=== PATIENT | female | born 1985 | race Caucasian/White ===

== ENCOUNTER 2022-04-18 17:44 | Inpatient (IN) | payer OTHER, SELFPAY ==
[2022-04-18 18:17] VITALS: BP 112/67; PULSE 95; RESP 18; TEMP 36.8; O2SAT 96; BMI 25.0
--- NOTE | 2022-04-18 19:57 | CRLHL7_ITS ---
For Patients: As a result of the Cures Act, medical imaging exams and procedure reports are released immediately into your electronic medical record. You may view this report before your referring provider. If you have questions, please contact your health care provider. Indication: Kicked by horse, concern for abscess. Technique: Targeted ultrasound of the anterior left thigh, the region of interest. Comparison: None. Findings: No drainable fluid collections or foreign bodies noted in the area of concern. Impression: No drainable fluid collections or foreign bodies noted in the area of concern, in the anterior left thigh. Dictated by Marquez Roque MD @ 04/18/2022 9:43:56 PM (Electronically Signed)
[2022-04-18 20:15] LABS: Basophils Absolute Auto 0.02 K/uL (0.00-0.30); Basophils Percent Auto 0.2 % (0.0-3.0); Eosinophils Absolute Auto 0.12 K/uL (0.00-0.50); Eosinophils Percent Auto 1.1 % (0.0-7.0); Hematocrit 32.7 % (33.0-51.0); Hemoglobin* 10.9 gm/dL (12.0-16.0); Immature Granulocytes Abs Auto 0.03 K/uL (0.00-0.30); Lymphocytes Percent Auto 16.3 % (20-44); Mean Corpuscular HGB Conc 33 gm/dL (32-36); Mean Corpuscular Hemoglobin 31 pg (26-34); Mean Corpuscular Volume 92 fL (80-100); Monocytes Percent Auto 6.2 % (0.0-11.0); Neutrophils Percent Auto 75.9 % (42.0-72.0); Platelet Count* 212 K/uL (140-440); RDW Coefficient of Variation % 12.1 % (11.5-15.5); Red Blood Count 3.57 m/uL (4.00-5.20); White Blood Count* 10.63 K/uL (4.50-11.00)
[2022-04-18 20:18] LABS: Slide Review Reflex No
[2022-04-18] MEDS: ONDANSETRON 2 MG/ML inj 4 MG IVP (20:33)
[2022-04-18] MEDS: HYDROmorphone 0.5 mg/0.5 ml inj IVP ×3 (20:33→23:45)
[2022-04-18 20:55] LABS: Erythrocyte SedimentationRate* 44 mm/hr (2-20)
--- NOTE | 2022-04-18 21:18 | ED_ITS ---
HPI - General Adult General Chief complaint: Skin/Abscess/Foreign Body Stated complaint: Possible Leg Infection Time Seen by Provider: 04/18/22 18:04 History of Present Illness HPI narrative: Pt is a 36 year old reasonably healthy woman who 4 days ago was struck in the left anterior thigh by her horse's foot while the amber was shoeing it. There was a shoeing nail protruding from the foot which cut into Lorna's thigh. The pt was taken to the hospital in [place] where the wound was closed. She states the wound was not washed. She was placed on Duracef and discharged home. The pt returned the next day with increasing redness and was given Bactrim DS to add to the Duracef. The pt states that she has had subjective fever and chills at home and the redness has expanded. She now has severe pain up into her groin on the left. The sutures feel like they are under pressure. Pt states that she is up to date on her Tdap and is her for help as she can't take the pain anymore. Related Data Home Medications Medication Instructions Recorded Confirmed cefadroxil 500 mg capsule mg 04/18/22 sulfamethoxazole 800 1 tab PO BID 04/18/22 04/18/22 mg-trimethoprim 160 mg tablet (Bactrim DS) Previous Rx's Medication Instructions Recorded duloxetine 60 mg capsule,delayed 60 mg PO QDAY #90 caps 03/16/22 release (Cymbalta) trazodone 100 mg tablet 200 mg PO QDAY #60 tabs 03/18/22 fluoxetine 20 mg capsule 60 mg PO QDAY #270 caps 04/11/22 topiramate 25 mg tablet See Rx Instructions .Route 04/13/22 .COMPLEX #270 tabs Allergies Allergy/AdvReac Type Severity Reaction Status Date / Time amoxicillin [From Augmentin] AdvReac Nausea Verified 04/18/22 18:17 clavulanic acid AdvReac Nausea Verified 04/18/22 18:17 [From Augmentin] Review of Systems Status of ROS: Reports: 10 or more systems reviewed and unremarkable except as noted in History and below [facility] Medical History Insomnia Social History Little interest or pleasure in doing things: not at all Feeling down, depressed, or hopeless: not at all Exam Narrative: Exam Narrative: EXAM GENERAL: Patient appears acutely uncomfortable and tearful EYES: No scleral icterus. THYROID: no thyroid nodules or thyromegaly. LYMPH: No supraclavicular or cervical lymphadenopathy. SKIN: Visible skin seen during exam normal or with benign process only. EXT: 2 by 2.5 cm closed laceration on the left anterior thigh with a radius of 10 cm of erythema surrounding. Significant groin adenopathy noted in the left groin HEART: Regular rate and rhythm with no murmurs, rubs, or gallops. LUNGS: Clear to auscultation bilaterally with no crackles or wheezes. ABD: Soft, non tender, non distended. PSYCH: Good eye contact, speech is not pressured. Const: Vital Signs, click to edit/add: Vital Signs - 24 hr 04/18/22 18:17 Temperature 98.2 F Pulse Rate [Right Pulse Oximeter] 95 Respiratory Rate 18 Blood Pressure [Ri ght Upper Arm] 112/67 Pulse Oximetry 96 Oxygen Delivery Me thod Room Air Course Course Hospital Course: Pt seen and examined. CBC, CMP, ESR, CRP, Blood and Wound cultures collected. Case discussed with general surgery who advised opening the wound. Large amount of puss expressed when wound was opened. Wound irrigated with sterile water, cultured and dressed. Labs reviewed. Pt started on Zosyn and Vancomycin and will be admitted for further evalutation. Reevaluation(s) Reevaluation #1: Pt feeling somewhat better after sutures removed. Explained need for admission. Started on Zosyn plus Vancomycine. Case admitted to [facility] after discussing with end of shift inhouse hospitalist. Time: 21:27 Reevaluation #2: Ultrasound obtained showing no further abscess. No DVT. Time: 21:29 Vital Signs Vital signs: Initial Vital Signs Temperature 98.2 F 04/18/22 18:17 Temperature Source Temporal Artery Scan 04/18/22 18:17 Pulse Rate 95 04/18/22 18:17 Respiratory Rate 18 04/18/22 18:17 Blood Pressure 112/67 04/18/22 18:17 Blood Pressure Mean 82 04/18/22 18:17 Blood Pressure Position Sitting 04/18/22 18:17 Pulse Oximetry 96 04/18/22 18:17 Oxygen Delivery Method 04/18/22 18:17 Vital Signs Temperature 98.2 F 04/18/22 18:17 Pulse Rate 95 04/18/22 18:17 Respiratory Rate 18 04/18/22 18:17 Blood Pressure 112/67 04/18/22 18:17 Pulse Oximetry 96 04/18/22 18:17 Oxygen Delivery Method 04/18/22 18:17 Temperature 98.2 F 04/18/22 18:17 Pulse Rate 95 04/18/22 18:17 Respiratory Rate 18 04/18/22 18:17 Blood Pressure 112/67 04/18/22 18:17 Pulse Oximetry 96 04/18/22 18:17 Oxygen Delivery Method 04/18/22 18:17 Medical Decision Making MDM Narrative Medical decision making narrative: Pt seen and examined. CBC, CMP, ESR, CRP, Blood and Wound cultures collected. Case discussed with general surgery who advised opening the wound. Large amount of puss expressed when wound was opened. Wound irrigated with sterile water, cultured and dressed. Labs reviewed. Pt started on Zosyn and Vancomycin and will be admitted for further evalutation. Differential Diagnosis Differential Diagnosis: Abcess, Cellulitis, Sepsis, Wound infection, Necrosis Lab Data Labs: Lab Results 04/18/22 04/18/22 04/18/22 Range/Units 19:57 19:57 19:57 WBC 10.63 (4.50-11.00) K/uL RBC 3.57 L (4.00-5.20) m/uL Hgb 10.9 L (12.0-16.0) gm/dL Hct 32.7 L (33.0-51.0) % MCV 92 (80-100) fL MCH 31 (26-34) pg MCHC 33 (32-36) gm/dL RDW Coeff of Dede 12.1 (11.5-15.5) % Plt Count 212 (140-440) K/uL Neut % (Auto) 75.9 H (42.0-72.0) % Lymph % (Auto) 16.3 L (20-44) % [place] % (Auto) 6.2 (0.0-11.0) % Eos % (Auto) 1.1 (0.0-7.0) % Baso % (Auto) 0.2 (0.0-3.0) % Neut # (Auto) 8.10 H (1.7-7.0) K/uL Lymph # (Auto) 1.70 (0.90-2.90) K/uL [place] # (Auto) 0.70 (0.00-0.90) K/UL Eos # (Auto) 0.12 (0.00-0.50) K/uL Baso # (Auto) 0.02 (0.00-0.30) K/uL Abs Immat Gran (auto) 0.03 (0.00-0.30) K/uL ESR 44 H (2-20) mm/hr C-Reactive Protein 5.0 H (0.5-1.0) mg/dL Discharge Plan Discharge Clinical Impression: Cellulitis Patient Disposition: Admitted As Inpatient Condition: Stable Activity Level: Activity as Tolerated Discharge Diet: Regular
[2022-04-18] MEDS: PIPERACILLIN/TAZOBACTAM 3.375 GM in 0.9 % SODIUM CHLORIDE Mini-bag 100 ML IVPB (22:06)
--- NOTE | 2022-04-18 22:17 | ED.NURSE ---
Suture removed from left thigh wound by provider and culture obtained. Area irrigated with normal saline and wet to dry gauze placed on leg.
[2022-04-18 22:26] LABS: SARS PCR* Negative SARS-CoV-2 (Negative)
[2022-04-18 22:44] VITALS: BP 99/61; PULSE 82; RESP 16; O2SAT 95
[2022-04-18] MEDS: TRAZODONE HCL 50 MG TABLET PO (23:12)
--- NOTE | 2022-04-18 23:58 | PM.GSCN ---
History of Present Illness Consult details Date Seen: 04/18/22 Consult date: 04/18/22 Narrative: Patient presents for an infected wound of the left medial thigh. She states that on she was working on her horses, when her horse kicked and hit her in the legs with a dirty nail. She initially presented to the emergency department in [place], where they irrigated the incision with normal saline and closed it with sutures. She was prescribed at that time cefadroxil. Over the weekend the pain and redness increased on her thigh. She did outline the area and noted that the redness extended beyond. She presented again to an outside facility, where they added on Bactrim to her antibiotic coverage. Despite this her redness continued to progress and she noticed some purulent drainage coming from the incisions. She also reports that the incisions felt like they were ?under pressure?. At this point she presented to [facility]. She denies any fevers or chills, although she notes feeling flushed throughout the weekend. She is otherwise healthy. Review of Systems Status of ROS: Reports: 10 or more systems reviewed and unremarkable except as noted in History and below [facility] Medical History Insomnia Social History Smoking Status: Unknown if ever smoked Do you use any of these nicotine containing products: None Second hand tobacco smoke exposure: No How often do you have a drink containing alcohol: never How often do you have six or more drinks on one occasion: Never AUDIT-C Alcohol total score: 0 Non-prescribed substance use: denies use Little interest or pleasure in doing things: not at all Feeling down, depressed, or hopeless: not at all Meds Home Medications and Allergies Home Medications Medication Instructions Recorded Confirmed Type cefadroxil 500 mg capsule mg 04/18/22 History sulfamethoxazole 800 1 tab PO BID 04/18/22 04/18/22 History mg-trimethoprim 160 mg tablet (Bactrim DS) Allergies Allergy/AdvReac Type Severity Reaction Status Date / Time amoxicillin [From Augmentin] AdvReac Nausea Verified 04/18/22 18:17 clavulanic acid AdvReac Nausea Verified 04/18/22 18:17 [From Augmentin] Exam Const: Vital Signs, click to edit/add: Vital Signs - 24 hr 04/18/22 18:17 04/18/22 22:44 Temperature 98.2 F Pulse Rate [Right Pulse Oximeter] 95 82 Respiratory Rate 18 16 Blood Pressure [Ri ght Upper Arm] 112/67 99/61 Pulse Oximetry 96 95 Oxygen Delivery Me thod Room Air Room Air Results Labs Labs: Abnormal lab results 04/18/22 04/18/22 04/18/22 Range/Units 19:57 19:57 19:57 RBC 3.57 L (4.00-5.20) m/uL Hgb 10.9 L (12.0-16.0) gm/dL Hct 32.7 L (33.0-51.0) % Neut % (Auto) 75.9 H (42.0-72.0) % Lymph % (Auto) 16.3 L (20-44) % Neut # (Auto) 8.10 H (1.7-7.0) K/uL ESR 44 H (2-20) mm/hr C-Reactive Protein 5.0 H (0.5-1.0) mg/dL All other labs normal. Imaging Additional studies: Ultrasound of soft tissue with no undrained fluid collection appreciated. Assessment and Plan Assessment and plan (1) Infection, wound status post trauma: Status: Acute Plan Patient is a 36-year-old female with evidence of an infected wound on her left medial thigh. The sutures were removed by the emergency room physician, with expulsion of a moderate amount of purulence and the area irrigated. She does have a significant amount of erythema and induration surrounding the wound itself. I did take down the dressings at bedside and explored the wound, with no undrained pockets appreciated. A moderate amount of necrotic fat was debrided from the wound bed, as well as overlying necrotic skin. The wound was packed with half-inch Iodosorb and overlying 4 x 4 dressing. She has been started on broad-spectrum antibiotics vancomycin and Zosyn. Wound cultures are pending. Will plan to recheck the wound tomorrow morning, as well as trend patient's fever curve overnight. Recommend repeat labs in the morning.
[2022-04-19] VITALS (8 sets, daily range): BP systolic 96–110; BP diastolic 48–70; PULSE 79–93; RESP 16–20; TEMP 36.6–37.2; O2SAT 92–94; BMI 25.3
[2022-04-19] MEDS: diphenhydrAMINE 25 MG CAPSULE PO ×3 (00:21→18:44)
--- NOTE | 2022-04-19 00:21 | ED.NURSE ---
call from remote pharmacy. pt has amoxicillin listed as allergy, pharmacy questioning zosyn order as in same antibiotic family. pt states she has no true allergy to any antibiotic and that she can handle amoxicillin. Pt states she has thrown up augmentin pills in the past, her stomach can't handle it.
--- NOTE | 2022-04-19 00:32 | ED.NURSE ---
Patient complaining of itching all over. Denies hives, sob and no respiratory difficulty. Approached MD for Esau order. Will continue to monitor.
--- NOTE | 2022-04-19 00:53 | W.PC.EDHO ---
Primary Language: Preferred Language: Orientation Status: [] Alert & Oriented [] Slight Confusion [] Known Dx Dementia Transfers By: [] Assist of 1 [] Assist of 2 [] Lift Active Medications Generic Name Dose Route Start Last Admin Trade Name Chuy PRN Reason Stop Dose Admin Diphenhydramine HCl 25 mg 04/19/22 00:03 04/19/22 00:21 Diphenhydramine 25 Mg Capsule PO 25 mg Q6H PRN Administration Discontinued Medications Generic Name Dose Route Start Last Admin Trade Name Chuy PRN Reason Stop Dose Admin Hydromorphone HCl 0.5 mg 04/18/22 20:20 04/18/22 20:33 Hydromorphone 0.5 Mg/0.5 Ml Inj IVP 04/18/22 20:21 0.5 mg ONCE ONE Administration Hydromorphone HCl 0.5 mg 04/18/22 22:33 04/18/22 23:11 Hydromorphone 0.5 Mg/0.5 Ml Inj IVP 04/18/22 22:34 0.5 mg ONCE ONE Administration Hydromorphone HCl 0.5 mg 04/18/22 23:14 04/18/22 23:45 Hydromorphone 0.5 Mg/0.5 Ml Inj IVP 04/18/22 23:15 0.5 mg ONCE ONE Administration Piperacillin Sod/Tazobactam 100 mls @ 200 mls/hr 04/18/22 21:32 04/18/22 23:09 Sod 3.375 gm/ Sodium Chloride IVPB 04/18/22 21:33 Infused ONCE ONE Infusion Vancomycin HCl 1,500 mg/ 515 mls @ 260 mls/hr 04/18/22 21:39 04/18/22 23:10 Sodium Chloride IVPB 04/18/22 23:31 260 mls/hr ONCE ONE Administration Protocol Ondansetron HCl 4 mg 04/18/22 20:20 04/18/22 20:33 Ondansetron 2 Mg/Ml Inj IVP 04/18/22 20:21 4 mg ONCE ONE Administration Trazodone HCl 50 mg 04/18/22 22:30 04/18/22 23:12 Trazodone Hcl 50 Mg Tablet PO 04/18/22 22:31 50 mg HS ONE Administration Description of Symptoms ED Triage Present Problem pt initially took a nail to her thigh when her Description amber was over doing her horses on , skin was sutured and she has been on antibiotics since monday when it started to appear to be infected, redness spreading and now having fevers ED Triage Date of Onset of 04/14/22 Symptoms Female History Patient No Pain Pain Description [Left Thigh] Radiating Pain Intensity [Left Thigh] 8 Pain Intensity 8 Pain Intensity 8 Pain Intensity 4 Pain Intensity 9 Pain Intensity 8 Pain Intensity 8 Pain Intensity 8 Pain Scale Used [Left Thigh] Numeric (1 - 10) Pain Scale Used Numeric (1 - 10) Pain Scale Used Numeric (1 - 10) Pain Scale Used Numeric (1 - 10) Oxygen Administration Pulse Oximetry 95 Pulse Oximetry 96 Oxygen Delivery Method Room Air Oxygen Delivery Method Room Air
--- NOTE | 2022-04-19 01:46 | PM.IMCN1 ---
Date of Consult Consult date: 04/19/22 Primary Care Provider: Abdiel Zayas MD Consult Narrative Narrative: Lorna Medina is a 36 year old female [facility] Medical History Insomnia Social History Smoking Status: Unknown if ever smoked Do you use any of these nicotine containing products: None Second hand tobacco smoke exposure: No How often do you have a drink containing alcohol: never How often do you have six or more drinks on one occasion: Never AUDIT-C Alcohol total score: 0 Non-prescribed substance use: denies use Little interest or pleasure in doing things: not at all Feeling down, depressed, or hopeless: not at all Meds Home Medications and Allergies Home Medications Medication Instructions Recorded Confirmed Type cefadroxil 500 mg capsule mg 04/18/22 History sulfamethoxazole 800 1 tab PO BID 04/18/22 04/18/22 History mg-trimethoprim 160 mg tablet (Bactrim DS) Allergies Allergy/AdvReac Type Severity Reaction Status Date / Time amoxicillin [From Augmentin] AdvReac Nausea Verified 04/18/22 18:17 clavulanic acid AdvReac Nausea Verified 04/18/22 18:17 [From Augmentin] Exam Const: Vital Signs, click to edit/add: Vital Signs - 24 hr 04/18/22 18:17 04/18/22 22:44 04/19/22 01:30 Temperature 98.2 F 98 F Pulse Rate [Pulse Oximeter] 82 Pulse Rate [Right Pulse Oximeter] 95 82 Respiratory Rate 18 16 16 Blood Pressure [Le ft Arm] 99/67 Blood Pressure [Ri ght Upper Arm] 112/67 99/61 Pulse Oximetry 96 95 94 Oxygen Delivery Me thod Room Air Room Air Room Air Labs Labs: Short CBC 04/18/22 Range/Units 19:57 WBC 10.63 (4.50-11.00) K/uL Hgb 10.9 L (12.0-16.0) gm/dL Hct 32.7 L (33.0-51.0) % Plt Count 212 (140-440) K/uL Assessment and Plan Assessment and plan (1) Infection, wound status post trauma: Status: Acute (2) Cellulitis: Status: Acute Plan [facility] Hospitalist CONSULTATION NOTE: Reason for consult: Cellulitis and abscess HPI: Patient is a pleasant 36-year-old female who was kicked by a horse on April 14 on her left thigh. Unfortunately the horse was in the process of being shoed and had a nail that had not been pounded out which punctured her skin at that point. She is started on antibiotics as an outpatient including Duricef and Bactrim but had continued worsening until presented to the ER today. In the ER she is noted to have worsening redness of the left thigh as well as some induration. Wound was opened and pustular material came out. Surgery evaluated and was concerned she may need debridement. They will reevaluate in the morning. In addition to pain of her thigh patient has had fevers and chills today. She is also had some sweats. She is got any headache or lightheadedness. She denies any chest pain or shortness of breath. She has had nausea with couple episodes of vomiting. She has had some diarrhea. Patient is an active smoker. She drinks alcohol on occasion. She does not use recreational drugs. We discussed CODE STATUS and she wishes to be full code. Exam (performed via interactive video with assistance of bedside nurse): General: Alert, cooperative, no acute distress HEENT: Pupils reported ERRL, oral mucosa pink and moist without erythema Lungs: Clear to auscultation bilaterally without crackle or wheeze CV: Regular rate and rhythm without loud murmur rub or gallop Abd: Bowel sounds present, denies tenderness and does not exhibit signs of pain with palpation done by bedside nurse Ext: No pitting edema noted Skin: There is a large area of erythema on her left thigh. Wound is surgically dressed. Neuro: Alert, oriented x 3. CN III -VII, XI, XII grossly intact, moves all extremities without any significant focal deficit appreciated by nurse Assessment and Plan: 1. Cellulitis and abscess of left thigh Patient is a pleasant 36-year-old female admitted for cellulitis and abscess of left thigh. She was started on Zosyn and vancomycin in the ER. Zosyn will be continued and vancomycin will be dosed by pharmacy. It is of note that vancomycin and Zosyn together do run the risk of nephrotoxicity, so every 24 or 48-hour BMPs are indicated. Cultures will need to be followed and antibiotics can be tailored at that point in time. Surgery is aware of patient and will reevaluate her in the morning. She will PRNs available for pain and nausea. Patient is young and can ambulate so no pharmacologic DVT prophylaxis have been ordered. Patient is a full code. Thank you for [facility]. This service is available for further assistance as requested by your care team by calling [phone].
[2022-04-19] MEDS: diphenhydrAMINE 50 MG/ML inj 25 MG IVP ×2 (03:15→13:48)
[2022-04-19] MEDS: MORPHINE 4 MG/ML INJ IVP ×6 (03:15→18:44)
[2022-04-19] MEDS: PIPERACILLIN/TAZOBACTAM 3.375 GM in 0.9 % SODIUM CHLORIDE Mini-bag 100 ML IVPB ×4 (04:24→21:40)
--- NOTE | 2022-04-19 06:18 | PC.NURSE ---
pt to floor at 0115. Pt expressing 10/10 pain in her left thigh, morphine given 2x with relief. Pt c/o itching as well, Benadryl given and pt stated relief. Left thigh dressing CDI. Reddened skin around the wound circled and timed. BPs 90s/60s, pt states this is her baseline. Afebrile. ?
[2022-04-19] MEDS: HYDROmorphone 0.5 mg/0.5 ml inj IVP (08:01)
[2022-04-19 08:02] LABS: HCO3 VBG 28 mmol/L (21-28); Lactate* 0.6 mmol/L (0.5-1.9); PCO2 VBG 55 mmHG (40-50); PO2 VBG 23.9 mmHG (25-47); pH VBG 7.305 (7.32-7.43)
[2022-04-19 08:04] LABS: Basophils Absolute Auto 0.02 K/uL (0.00-0.30); Basophils Percent Auto 0.2 % (0.0-3.0); Eosinophils Absolute Auto 0.15 K/uL (0.00-0.50); Eosinophils Percent Auto 1.8 % (0.0-7.0); Hematocrit 33.7 % (33.0-51.0); Hemoglobin* 10.9 gm/dL (12.0-16.0); Immature Granulocytes Abs Auto 0.02 K/uL (0.00-0.30); Lymphocytes Percent Auto 16.7 % (20-44); Mean Corpuscular HGB Conc 32 gm/dL (32-36); Mean Corpuscular Hemoglobin 30 pg (26-34); Mean Corpuscular Volume 94 fL (80-100); Monocytes Percent Auto 6.4 % (0.0-11.0); Neutrophils Percent Auto 74.7 % (42.0-72.0); Platelet Count* 212 K/uL (140-440); RDW Coefficient of Variation % 12.3 % (11.5-15.5); White Blood Count* 8.14 K/uL (4.50-11.00)
[2022-04-19 08:09] LABS: Slide Review Reflex No
[2022-04-19 08:18] LABS: Albumin* 3.5 g/dL (3.3-5.0); Chloride* 108 mmol/L (96-114)
[2022-04-19 08:19] LABS: Sodium* 139 mmol/L (135-149)
[2022-04-19 08:21] LABS: Alkaline Phosphatase* 105 U/L (40-150); Aspartate Amino Transferase* 136 U/L (12-35); Bilirubin Total* 0.7 mg/dL (0.1-1.5); Carbon Dioxide* 27 mmol/L (20-32); Creatinine* 0.8 mg/dL (0.5-1.5); Est. Creatinine Clearance* 89.26; Estimated Glomerular Filt Rate 97 ml/min; INR 1.02 (0.91-1.10); Prothrombin Time 13.8 Seconds
[2022-04-19 08:22] LABS: Alanine Aminotransferase* 103 U/L (4-35); Blood Urea Nitrogen* 5 mg/dL (5-24); Calcium* 8.4 mg/dL (8.4-10.6); Glucose* 91 mg/dL (60-115)
[2022-04-19] MEDS: ONDANSETRON 2 MG/ML inj 4 MG IVP ×2 (08:23→18:44)
[2022-04-19 08:24] LABS: C Reactive Protein* 4.6 mg/dL (0.5-1.0)
--- NOTE | 2022-04-19 09:45 | PM.GSPN ---
Subjective Subjective Date Seen: 04/19/22 Interval history: Patient ?feels awful? this morning. She states that her pain is worse compared to last night and has been getting nauseous from the pain medications, which she is taking frequently this morning. No fevers overnight. Reports that pain radiates up to her left groin, where she has prominent lymph nodes that are tender. Exam Narrative: Exam Narrative: General: Patient lying in bed in no acute distress. Nontoxic in appearance Extremities: Anterior medial left side a with erythema and outlined area, no extension beyond the outlined area. The dressings were taken down there is a wound measuring approximately 5 cm x 5 cm x 5 cm in size. The wound bed has a moderate amount of necrotic fat. No purulence from wound or undrained pockets of infection. Entire area is very tender to palpation. There is some blanching erythema around the opening of the wound. Const: Vital Signs, click to edit/add: Vital Signs - 24 hr 04/18/22 18:17 04/18/22 22:44 04/19/22 01:30 Temperature 98.2 F 98 F Pulse Rate [Pulse Oximeter] 82 Pulse Rate [Right Pulse Oximeter] 95 82 Respiratory Rate 18 16 16 Blood Pressure [Le ft Arm] 99/67 Blood Pressure [Ri ght Upper Arm] 112/67 99/61 Pulse Oximetry 96 95 94 Oxygen Delivery Me thod Room Air Room Air Room Air 04/19/22 01:38 04/19/22 05:12 Temperature 98 F Pulse Rate [Pulse Oximeter] 82 Pulse Rate [Right Pulse Oximeter] Respiratory Rate 16 16 Blood Pressure [Le ft Arm] 99/67 Blood Pressure [Ri ght Upper Arm] Pulse Oximetry 94 94 Oxygen Delivery Me thod Room Air Room Air Progress Note: A&P Assessment and plan (1) Infection, wound status post trauma: Status: Acute Assessment and Plan: Patient with surrounding cellulitis and associated abscess from a nail injury 4 days earlier. The wound was been drained and debrided while in the emergency department. This morning the patient is reporting increasing pain. On exam the erythema has remained within the outlined area, erythema and induration is stable compared to yesterday evening. She was afebrile overnight. No evidence of leukocytosis. CRP is stable at 4.6. She continues on broad-spectrum antibiotics vancomycin and Zosyn with cultures pending. -b.i.d. dressing changes. Wet to dry with Vashe -continue IV antibiotics, broad spectrum with cultures pending -continue to trend fever curve in inflammatory markers
[2022-04-19] MEDS: KETOROLAC 15 MG/ML inj IVP ×3 (10:26→21:38)
--- NOTE | 2022-04-19 10:43 | PM.IMPN1 ---
Progress Note: A&P Assessment and plan (1) Infection, wound status post trauma: Problem details: April 14 kicked by horse with laceration of left thigh. Treated with cefadroxil and Bactrim as an outpatient but getting worse. Sutures removed and abscess drained. Now on Zosyn and vancomycin. She reports tetanus is up-to-date. Status: Acute (2) Elevated liver transaminase level: Problem details: Unclear cause. Not apparently symptomatic. Continue to follow. If increasing or symptomatic do further evaluation, possibly ultrasound. Otherwise outpatient evaluation. In her medical record the last transaminases were in March 2019 and were normal. Cholecystectomy April 2009 Status: Acute (3) Pain: Problem details: Initiate Toradol 15 mg IV q.6 hours scheduled. Transition to oral NSAIDs in the next day or 2. Monitor kidney function and electrolytes with NSAIDs and Zosyn and vancomycin. Opioids p.r.n.. Monitor for nausea. Status: Acute Plan Anticipate IV antibiotics for 2-3 more days pending culture results and clinical improvement Time Spent With Patient Total time spent: Total time spent today is 40 minutes, 30 minutes in coordination of care and discussing with patient and other providers management of abscess and pain Subjective Date Seen: 04/19/22 Interval history: 36-year-old female seen in followup of hospitalization for cellulitis of the left thigh following an injury last week. Last , 5 days ago she was kicked by a horse while the horse was getting shoes applied. One of the nails to attach the shoe to the off with sticking out when he kicked her. This caused a laceration of her left thigh. It was repaired paired in the emergency department was edges. Subsequently she had increasing pain redness and swelling. She was treated with cefadroxil and Bactrim. Because of increasing pain and redness she returned to our emergency department last night where she was felt to have an abscess. She was seen by who washed out an abscess in her thigh. She has been on Pipracil and tazobactam and vancomycin. She reports she still having a feeling of sweats and chills. She thinks the pain is a little bit worse today. She has some nausea as well she does not think the nausea is coming after her opioid pain medications. Patient was noted this morning to have elevated transaminases. She tells me she does not drink alcohol. No history of hepatitis or abnormal liver tests in the past. No history of liver disease. Exam Narrative: Exam Narrative: She is alert appears in no distress. She gives her own history. Respirations are unlabored. Abdomen is soft without tenderness or mass. Left groin is very tender with palpable lymphadenitis. Mid anterior medial thigh has a dressing over a wound which is packed with gauze draining a purulent material. This is removed by Dr. Winter and redressed. The area of erythema surrounding this has not changed substantially overnight. She is very tender to touch in this entire area. Distally she has intact pulses and sensation. Const: Vital Signs, click to edit/add: Vital Signs - 24 hr 04/18/22 18:17 04/18/22 22:44 04/19/22 01:30 Temperature 98.2 F 98 F Pulse Rate [Pulse Oximeter] 82 Pulse Rate [Right Pulse Oximeter] 95 82 Respiratory Rate 18 16 16 Blood Pressure [Le ft Arm] 99/67 Blood Pressure [Ri ght Upper Arm] 112/67 99/61 Pulse Oximetry 96 95 94 Oxygen Delivery Me thod Room Air Room Air Room Air 04/19/22 01:38 04/19/22 05:12 04/19/22 10:09 Temperature 98 F Pulse Rate [Pulse Oximeter] 82 82 Pulse Rate [Right Pulse Oximeter] Respiratory Rate 16 16 16 Blood Pressure [Le ft Arm] 99/67 Blood Pressure [Ri ght Upper Arm] Pulse Oximetry 94 94 Oxygen Delivery Me thod Room Air Room Air Documenting provider has reviewed patient's vital signs: yes Labs Labs: Laboratory Results - last 24 hr 04/18/22 04/18/22 04/18/22 19:57 19:57 19:57 WBC 10.63 RBC 3.57 L Hgb 10.9 L Hct 32.7 L MCV 92 MCH 31 MCHC 33 RDW Coeff of Dede 12.1 Plt Count 212 Neut % (Auto) 75.9 H Lymph % (Auto) 16.3 L [place] % (Auto) 6.2 Eos % (Auto) 1.1 Baso % (Auto) 0.2 Neut # (Auto) 8.10 H Lymph # (Auto) 1.70 [place] # (Auto) 0.70 Eos # (Auto) 0.12 Baso # (Auto) 0.02 Abs Immat Gran (auto) 0.03 ESR 44 H INR VBG pH VBG pCO2 VBG pO2 VBG HCO3 Sodium Potassium Chloride Carbon Dioxide BUN Creatinine Estimated Creat Clear Estimated GFR Glucose Lactate Calcium Total Bilirubin AST ALT Alkaline Phosphatase C-Reactive Protein 5.0 H Total Protein Albumin SARS-CoV-2 (PCR) 04/18/22 04/19/22 04/19/22 21:32 07:54 07:54 WBC 8.14 RBC 3.60 L Hgb 10.9 L Hct 33.7 MCV 94 MCH 30 MCHC 32 RDW Coeff of Dede 12.3 Plt Count 212 Neut % (Auto) 74.7 H Lymph % (Auto) 16.7 L [place] % (Auto) 6.4 Eos % (Auto) 1.8 Baso % (Auto) 0.2 Neut # (Auto) 6.10 Lymph # (Auto) 1.40 [place] # (Auto) 0.50 Eos # (Auto) 0.15 Baso # (Auto) 0.02 Abs Immat Gran (auto) 0.02 ESR INR 1.02 VBG pH VBG pCO2 VBG pO2 VBG HCO3 Sodium Potassium Chloride Carbon Dioxide BUN Creatinine Estimated Creat Clear Estimated GFR Glucose Lactate Calcium Total Bilirubin AST ALT Alkaline Phosphatase C-Reactive Protein Total Protein Albumin SARS-CoV-2 (PCR) Negative SARS-CoV-2 04/19/22 04/19/22 07:54 07:54 WBC RBC Hgb Hct MCV MCH MCHC RDW Coeff of Dede Plt Count Neut % (Auto) Lymph % (Auto) [place] % (Auto) Eos % (Auto) Baso % (Auto) Neut # (Auto) Lymph # (Auto) [place] # (Auto) Eos # (Auto) Baso # (Auto) Abs Immat Gran (auto) ESR INR VBG pH 7.305 L VBG pCO2 55 H VBG pO2 23.9 L VBG HCO3 28 Sodium 139 Potassium 4.0 Chloride 108 Carbon Dioxide 27 BUN 5 Creatinine 0.8 Estimated Creat Clear 89.26 Estimated GFR 97 Glucose 91 Lactate 0.6 Calcium 8.4 Total Bilirubin 0.7 AST 136 H ALT 103 H Alkaline Phosphatase 105 C-Reactive Protein 4.6 H Total Protein 6.0 Albumin 3.5 SARS-CoV-2 (PCR)
--- NOTE | 2022-04-19 14:31 | PC.NURSE ---
End of shift. Pt has pleasant. left upper leg pain. pain has been 5-8/10 she is getting IV pain meds. Toradol and IV morphine given for pain control. Pt pain 10/. with dressing change. Pt c/o itching as well, Benadryl given po and IV. Left thigh dressing was changed by MD Winter. . Reddened skin around the wound circled and timed. she is up ab tavia. she is eating, drinking and voiding. she likes coke.
--- NOTE | 2022-04-19 17:06 | PC.NURSE ---
SHIFT REPORT: PATIENT PLEASANT AND COOPERATIVE, ALERT AND ORIENTED, UP IND IN ROOM, DRESSING INTACT TO LEFT THIGH, REDNESS REMAINS WITHIN PREVIOUS OUTLINE, RATING PAIN IN THIGH 5/10, TOLERATING REGULAR DIET.
[2022-04-19] MEDS: LORazepam 2 MG/ML inj IVP (21:38)
[2022-04-19] MEDS: DULOXETINE 30 MG CAPSULE DR 60 MG PO (21:39)
[2022-04-19] MEDS: FLUOXETINE HCL 20 MG CAPSULE 60 MG PO (21:39)
[2022-04-19] MEDS: TOPIRAMATE 25 MG TABLET 75 MG PO (23:54)
[2022-04-20] VITALS (7 sets, daily range): BP systolic 106–132; BP diastolic 68–84; PULSE 60–88; RESP 16–18; TEMP 36.6–37.2; O2SAT 91–94
[2022-04-20] MEDS: LORazepam 0.5 MG TABLET PO ×4 (01:58→20:47)
[2022-04-20] MEDS: PIPERACILLIN/TAZOBACTAM 3.375 GM in 0.9 % SODIUM CHLORIDE Mini-bag 100 ML IVPB ×4 (04:00→22:00)
[2022-04-20] MEDS: ONDANSETRON 2 MG/ML inj 4 MG IVP (04:00)
[2022-04-20] MEDS: KETOROLAC 15 MG/ML inj IVP ×2 (04:00→09:35)
--- NOTE | 2022-04-20 06:16 | PC.NURSE ---
Shift note: Outline updated in PM due to expansion from previous outline. Pt is afebrile, rates pain 8-9/10. Pain treated per eMAR and pt is able to rest. She requests Ativan for rest, nausea and anxiety, education provided, pt needs reinforcement.
[2022-04-20] MEDS: MORPHINE 4 MG/ML INJ IVP ×3 (07:23→23:57)
[2022-04-20 08:07] LABS: Chloride* 108 mmol/L (96-114)
[2022-04-20 08:08] LABS: Albumin* 3.3 g/dL (3.3-5.0); Potassium* 4.4 mmol/L (3.6-5.1); Sodium* 137 mmol/L (135-149)
[2022-04-20 08:11] LABS: Alkaline Phosphatase* 98 U/L (40-150); Aspartate Amino Transferase* 59 U/L (12-35); Bilirubin Direct* 0.2 mg/dL (0.0-0.5); Bilirubin Total* 0.5 mg/dL (0.1-1.5); Blood Urea Nitrogen* 9 mg/dL (5-24); Carbon Dioxide* 23 mmol/L (20-32); Creatinine* 0.9 mg/dL (0.5-1.5); Est. Creatinine Clearance* 79.34; Estimated Glomerular Filt Rate 84 ml/min; Glucose* 96 mg/dL (60-115); Total Protein* 5.9 g/dL (6.0-8.3)
[2022-04-20 08:12] LABS: Alanine Aminotransferase* 78 U/L (4-35); Calcium* 8.7 mg/dL (8.4-10.6)
[2022-04-20 08:14] LABS: C Reactive Protein* 3.3 mg/dL (0.5-1.0)
[2022-04-20 08:22] LABS: Lab Add On Test New Spec Needed
[2022-04-20 08:36] LABS: Basophils Absolute Auto 0.01 K/uL (0.00-0.30); Basophils Percent Auto 0.1 % (0.0-3.0); Eosinophils Absolute Auto 0.13 K/uL (0.00-0.50); Eosinophils Percent Auto 1.7 % (0.0-7.0); Hematocrit 31.2 % (33.0-51.0); Hemoglobin* 10.3 gm/dL (12.0-16.0); Immature Granulocytes Abs Auto 0.01 K/uL (0.00-0.30); Lymphocytes Percent Auto 15.9 % (20-44); Mean Corpuscular HGB Conc 33 gm/dL (32-36); Mean Corpuscular Hemoglobin 31 pg (26-34); Mean Corpuscular Volume 93 fL (80-100); Monocytes Percent Auto 7.8 % (0.0-11.0); Neutrophils Percent Auto 74.4 % (42.0-72.0); Platelet Count* 181 K/uL (140-440); RDW Coefficient of Variation % 12.1 % (11.5-15.5); Red Blood Count 3.37 m/uL (4.00-5.20); White Blood Count* 7.73 K/uL (4.50-11.00)
[2022-04-20 08:37] LABS: Slide Review Reflex No
[2022-04-20 09:00] LABS: HCO3 VBG 27 mmol/L (21-28); Lactate* 0.5 mmol/L (0.5-1.9); PCO2 VBG 49 mmHG (40-50)
[2022-04-20] MEDS: diphenhydrAMINE 25 MG CAPSULE PO ×2 (09:36→21:24)
--- NOTE | 2022-04-20 09:55 | PM.GSPN ---
Subjective Subjective Date Seen: 04/20/22 Interval history: Patient reports that she is only doing ?okay? this morning. Her pain continues to be severe requiring narcotic pain medicine. She does think that is stable compared to yesterday. She has been able to get up and ambulate the halls without difficulty. Denies any fevers. Is tolerating a regular diet. Exam Narrative: Exam Narrative: General: Patient lying in bed in no acute distress. Nontoxic in appearance Extremities: Anterior medial left side with erythema and new outlined area, no extension beyond the outlined area with improvement noted on the medial aspect. Lateral and superior aspect of the wound appears stable to this provider. The dressings were taken down there is a wound measuring approximately 5 cm x 5 cm x 5 cm in size. The wound bed has no purulence, bed of healthy granulation tissue. A small amount of necrotic fat on the inferior aspect of the wound. Surrounding erythema and induration appears stable. Const: Vital Signs, click to edit/add: Vital Signs - 24 hr 04/19/22 10:09 04/19/22 11:15 04/19/22 15:00 Temperature 97.9 F 98.1 F Pulse Rate [Pulse Oximeter] 82 93 84 Respiratory Rate 16 16 16 Blood Pressure [Le ft Arm] 100/48 L 96/52 L Pulse Oximetry 92 92 Oxygen Delivery Me thod Room Air Room Air 04/19/22 19:00 04/19/22 23:00 04/20/22 03:00 Temperature 98.2 F 98.9 F 98.9 F Pulse Rate [Pulse Oximeter] 79 81 78 Respiratory Rate 18 20 18 Blood Pressure [Le ft Arm] 104/64 110/70 Pulse Oximetry 92 93 92 Oxygen Delivery Me thod Room Air Room Air Room Air 04/20/22 07:25 04/20/22 07:20 Temperature 98.4 F Pulse Rate [Pulse Oximeter] 88 88 Respiratory Rate 16 16 Blood Pressure [Le ft Arm] 132/84 Pulse Oximetry 92 Oxygen Delivery Me thod Room Air Documenting provider has reviewed patient's vital signs: yes Labs/Imaging Labs Labs: No leukocytosis, CRP continues to trend down at 3.3 Progress Note: A&P Assessment and plan (1) Infection, wound status post trauma: Problem details: April 14 kicked by horse with laceration of left thigh. Treated with cefadroxil and Bactrim as an outpatient but getting worse. Sutures removed and abscess drained. Now on Zosyn and vancomycin. She reports tetanus is up-to-date. Status: Acute Assessment and Plan: Patient with surrounding cellulitis and associated abscess secondary to injury from a dirty nail, now status post debridement. Continues to be afebrile with no evidence of leukocytosis and down trending CRP. Wound cultures are still pending with patient continued on broad-spectrum antibiotics. Dressing changed at bedside, wound appears adequately drained with no further purulence noted and wound bed with healthy granulation tissue. Patients persistent severe pain is concerning, but clinically her cellulitis does appear to be improving. -b.i.d. dressing changes. Wet to dry with Vashe. A.m. dressing change performed by myself, nurse to do evening dressing change -continue IV antibiotics, broad spectrum with cultures pending -continue to trend fever curve in inflammatory markers
--- NOTE | 2022-04-20 11:23 | CRLHL7_ITS ---
For Patients: As a result of the Century Cures Act, medical imaging exams and procedure reports are released immediately into your electronic medical record. You may view this report before your referring provider. If you have questions, please contact your health care provider. INDICATION: Puncture wound. Evaluate for infection. TECHNIQUE: Axial T1 and T2 fat-sat, coronal T1, PD and T2 and sagittal T2 precontrast sequences. 15 mL Doterem gadolinium with T1 fat-sat postcontrast sequences in all 3 planes. FINDINGS: Skin defect and shallow subcutaneous defect ventral medial proximal left thigh. Diameter approximately 25 mm and depth roughly 8 mm. Surrounding enhancing skin thickening and subcutaneous edema without organized fluid. No fascia edema or enhancement. No muscle enhancement or edema present. No MR findings for foreign body. IMPRESSION: Skin defect with well-defined shallow subcutaneous defect ventral of medial proximal left thigh with surrounding cellulitis. Dictated by Rajeev Singh MD @ 04/20/2022 2:12:49 PM (Electronically Signed)
--- NOTE | 2022-04-20 15:15 | P.IMPN_ITS ---
Progress Note: A&P Assessment and plan (1) Infection, wound status post trauma: Problem details: DOI: April 14 kicked by horse with laceration of left thigh. Vanc and Zosyn. wound care. PO oxy vs IV morphine and dilaudid. po ativan vs IV ativan. tylenol and toradol is appropriate between dressing changes; premdicate as needed for wound cleansing. continue abx, narrow when C/S has returned. MRI reassuring for no deep seated infection/osteo or abscess. Status: Acute Subjective Date Seen: 04/20/22 Interval history: Daily Progress Note - Hospital Medicine Day #: 2 CC: left thigh infection (cellulitis). s/p I/D Day 2: Vanc and Zosyn OVERNIGHT UPDATES FROM STAFF & MED, LAB, IMAGING UPDATES Patient seems a little agitated this morning. She is having some pain but also anxiety. She is watching cartoons but wishing that someone help her wash her face and get a shower. She had a lot of questions about when she is allowed to have pain medications and IV Ativan and morphine have been given overnight. Afebrile Total WBC count down trending. Hemoglobin mildly depressed but stable. PH normal LFTs down trending CRP down trending Blood cultures x2 negative Likely strep growing from wound, sensitivities and identification pending. MRI left thigh Skin defect and shallow subcutaneous defect ventral medial proximal left thigh. Diameter approximately 25 mm and depth roughly 8 mm. Surrounding enhancing skin thickening and subcutaneous edema without organized fluid. No fascia edema or enhancement. No muscle enhancement or edema present. No MR findings for foreign body. Review of Systems: See subjective Cardiac: No new chest pain/pressure/palpitations. Respiratory: no new dyspnea. GI: No abdominal bloating Objective: Vitals: see above Lungs: Clear. Cardiac: S1S2. Left thigh: surrounding erythema; no odor or purulence noted; status of the infection is no better but not worse today. Disposition/Potential discharge - Likely to return to previous living situation. Total time is 35 minutes with greater than 50% spent in counseling and coordination of care. Exam Const: Vital Signs, click to edit/add: Vital Signs - 24 hr 04/19/22 19:00 04/19/22 23:00 04/20/22 03:00 Temperature 98.2 F 98.9 F 98.9 F Pulse Rate [Pulse Oximeter] 79 81 78 Respiratory Rate 18 20 18 Blood Pressure [Le ft Arm] 104/64 110/70 Pulse Oximetry 92 93 92 Oxygen Delivery Me thod Room Air Room Air Room Air 04/20/22 07:25 04/20/22 07:20 04/20/22 11:15 Temperature 98.4 F 98.1 F Pulse Rate [Pulse Oximeter] 88 88 73 Respiratory Rate 16 16 18 Blood Pressure [Le ft Arm] 132/84 106/68 Pulse Oximetry 92 93 Oxygen Delivery Me thod Room Air Room Air Labs Labs: Laboratory Results - last 24 hr 04/20/22 04/20/22 04/20/22 07:32 07:32 08:37 WBC 7.73 RBC 3.37 L Hgb 10.3 L Hct 31.2 L MCV 93 MCH 31 MCHC 33 RDW Coeff of Dede 12.1 Plt Count 181 Neut % (Auto) 74.4 H Lymph % (Auto) 15.9 L [place] % (Auto) 7.8 Eos % (Auto) 1.7 Baso % (Auto) 0.1 Neut # (Auto) 5.80 Lymph # (Auto) 1.20 [place] # (Auto) 0.60 Eos # (Auto) 0.13 Baso # (Auto) 0.01 Abs Immat Gran (auto) 0.01 VBG pH 7.340 VBG pCO2 49 VBG pO2 20.0 L VBG HCO3 27 Sodium 137 Potassium 4.4 Chloride 108 Carbon Dioxide 23 BUN 9 Creatinine 0.9 Estimated Creat Clear 79.34 Estimated GFR 84 Glucose 96 Lactate 0.5 Calcium 8.7 Total Bilirubin 0.5 Direct Bilirubin 0.2 AST 59 H ALT 78 H Alkaline Phosphatase 98 C-Reactive Protein 3.3 H Total Protein 5.9 L Albumin 3.3
[2022-04-20] MEDS: KETOROLAC 30 MG/ML inj IVP ×2 (16:02→20:47)
[2022-04-20] MEDS: ACETAMINOPHEN 500 MG TABLET 1000 MG PO (16:03)
[2022-04-20] MEDS: OXYCODONE 5 MG TABLET PO ×2 (16:46→22:21)
--- NOTE | 2022-04-20 19:54 | PC.NURSE ---
End of shift.? Pt has more pleasant today.? left upper leg pain.? pain has been 5-03/19? she is getting IV pain meds. and later po pain meds also ? Toradol was increased and IV morphine given for pain control. ? Pt pain was better today. she had a shower. .? md did dressing and nurse also did a dressing change after her shower. .? ? Pt c/o itching, po Benadryl given. ? Reddened skin around the wound circled and timed. ? she is up ab tavia.? she is eating, drinking and voiding. ? her mom was here
[2022-04-20] MEDS: DULOXETINE 30 MG CAPSULE DR 60 MG PO (20:47)
[2022-04-20] MEDS: FLUOXETINE HCL 20 MG CAPSULE 60 MG PO (20:47)
[2022-04-20] MEDS: TOPIRAMATE 25 MG TABLET 75 MG PO (20:47)
[2022-04-20] MEDS: diphenhydrAMINE 50 MG/ML inj 25 MG IVP (22:23)
[2022-04-20] MEDS: MELATONIN 3 MG TABLET PO (23:57)
[2022-04-21] VITALS (8 sets, daily range): BP systolic 118–126; BP diastolic 69–83; PULSE 55–72; RESP 12–18; TEMP 36.6–36.8; O2SAT 90–93
[2022-04-21] MEDS: PIPERACILLIN/TAZOBACTAM 3.375 GM in 0.9 % SODIUM CHLORIDE Mini-bag 100 ML IVPB ×2 (03:57→10:03)
[2022-04-21] MEDS: KETOROLAC 30 MG/ML inj IVP ×3 (03:58→15:59)
--- NOTE | 2022-04-21 05:33 | PC.NURSE ---
Shift note: The pt was a little agitated At HS stating the pain was very bothersome (02/16); She requested IV pain medication; 4mg IV morphine was given; the reported a relief from the pain. The redness to left thigh remains in the outline margins; Still hot to touch; dressing to the left thigh has been C/D/I. The pt is up to BR independently. Denied chest pain and short of breath.
[2022-04-21] MEDS: OXYCODONE 5 MG TABLET PO ×3 (07:13→17:32)
[2022-04-21 07:25] LABS: Basophils Absolute Auto 0.03 K/uL (0.00-0.30); Basophils Percent Auto 0.4 % (0.0-3.0); Eosinophils Absolute Auto 0.16 K/uL (0.00-0.50); Eosinophils Percent Auto 2.1 % (0.0-7.0); Hematocrit 30.6 % (33.0-51.0); Hemoglobin* 9.9 gm/dL (12.0-16.0); Immature Granulocytes Abs Auto 0.02 K/uL (0.00-0.30); Lymphocytes Percent Auto 15.7 % (20-44); Mean Corpuscular HGB Conc 32 gm/dL (32-36); Mean Corpuscular Hemoglobin 31 pg (26-34); Mean Corpuscular Volume 94 fL (80-100); Monocytes Percent Auto 7.8 % (0.0-11.0); Neutrophils Percent Auto 73.7 % (42.0-72.0); Platelet Count* 184 K/uL (140-440); RDW Coefficient of Variation % 12.1 % (11.5-15.5); Red Blood Count 3.24 m/uL (4.00-5.20); White Blood Count* 7.72 K/uL (4.50-11.00)
[2022-04-21 07:31] LABS: Slide Review Reflex No
[2022-04-21 07:33] LABS: Albumin* 3.3 g/dL (3.3-5.0); Chloride* 106 mmol/L (96-114)
[2022-04-21 07:34] LABS: Potassium* 4.3 mmol/L (3.6-5.1); Sodium* 138 mmol/L (135-149)
[2022-04-21 07:36] LABS: Creatinine* 1.1 mg/dL (0.5-1.5); Est. Creatinine Clearance* 64.92; Estimated Glomerular Filt Rate 66 ml/min
[2022-04-21 07:37] LABS: Alanine Aminotransferase* 84 U/L (4-35); Alkaline Phosphatase* 100 U/L (40-150); Aspartate Amino Transferase* 67 U/L (12-35); Bilirubin Total* 0.5 mg/dL (0.1-1.5); Blood Urea Nitrogen* 7 mg/dL (5-24); Calcium* 8.7 mg/dL (8.4-10.6); Carbon Dioxide* 27 mmol/L (20-32); Glucose* 94 mg/dL (60-115); Total Protein* 5.8 g/dL (6.0-8.3)
[2022-04-21 07:40] LABS: C Reactive Protein* 2.1 mg/dL (0.5-1.0)
[2022-04-21] MEDS: ACETAMINOPHEN 500 MG TABLET 1000 MG PO ×2 (08:01→16:00)
--- NOTE | 2022-04-21 09:16 | PM.GSPN ---
Subjective Subjective Date Seen: 04/21/22 Interval history: Patient is doing better this morning. She rates her pain at a 7, which is improved from yesterday. She has been ambulating without difficulty. She is tolerating a diet, but admits to some nausea this morning. She has not yet had narcotic pain medicine and is scheduled for an abdominal ultrasound secondary to elevated liver enzymes. No other concerns and has remained afebrile. Exam Narrative: Exam Narrative: General: Alert and oriented, no acute distress. Lying comfortably in bed. Extremities: Left medial thigh erythema has improved and is receding from the outlined area. Around the central portion of the wound the erythema and induration is less this morning compared to yesterday. Dressings were taken down wound bed with granulation tissue, no significant fibrinous exudate or necrotic fat appreciated, no purulent drainage. Patient was educated on application of dressings. Const: Vital Signs, click to edit/add: Vital Signs - 24 hr 04/20/22 11:15 04/20/22 17:51 04/20/22 17:51 Temperature 98.1 F 98.0 F Pulse Rate [Pulse Oximeter] 73 73 79 Respiratory Rate 18 18 18 Blood Pressure [Le ft Arm] 106/68 112/76 Pulse Oximetry 93 93 Oxygen Delivery Me thod Room Air Room Air 04/20/22 19:00 04/20/22 23:30 04/20/22 23:30 Temperature 98 F 97.8 F Pulse Rate [Pulse Oximeter] 67 60 60 Respiratory Rate 18 18 18 Blood Pressure [Le ft Arm] 115/76 113/77 Pulse Oximetry 94 91 Oxygen Delivery Me thod Room Air Room Air 04/21/22 04:00 Temperature 97.9 F Pulse Rate [Pulse Oximeter] 72 Respiratory Rate 18 Blood Pressure [Le ft Arm] 119/74 Pulse Oximetry 93 Oxygen Delivery Me thod Room Air Labs/Imaging Labs Labs: No leukocytosis, CRP continues to trend down at 2.1 Imaging Imaging: MRI of the legs demonstrates open wound and surrounding cellulitis, no concern for any fascial or muscle involvement. Progress Note: A&P Assessment and plan (1) Infection, wound status post trauma: Problem details: DOI: April 14 kicked by horse with laceration of left thigh. Vanc and Zosyn. wound care. PO oxy vs IV morphine and dilaudid. po ativan vs IV ativan. tylenol and toradol is appropriate between dressing changes; premdicate as needed for wound cleansing. continue abx, narrow when C/S has returned. MRI reassuring for no deep seated infection/osteo or abscess. Status: Acute Assessment and Plan: Patient with surrounding cellulitis and associated abscess secondary to injury from a dirty nail, now status post debridement. Clinically cellulitis has improved and patient is reporting less pain this morning. Wound bed with healthy granulation tissue, no concern for undrained abscess and no evidence of any associated necrotic tissue. Her dressing was changed this morning by myself and patient was educated regarding dressings at home. Recommend that she continue with b.i.d. dressings while in the hospital and daily at the time of discharge. She continues on broad-spectrum IV antibiotics. Wound culture has grown out strep group G with sensitivities pending, defer further antibiotic management to Dr. Saavedra. Follow-up orders have been placed for follow-up with her PCP next week and to see me in clinic in 2 weeks.
--- NOTE | 2022-04-21 10:00 | CRLHL7_ITS ---
For Patients: As a result of the Cures Act, medical imaging exams and procedure reports are released immediately into your electronic medical record. You may view this report before your referring provider. If you have questions, please contact your health care provider. INDICATION: abnormal changes in LFTs. on IV antibiotics COMPARISON: none TECHNIQUE: Real time meraz scale imaging and color Doppler analysis was performed of the right upper quadrant. FINDINGS: Increased echotexture of the portal triads noted within the liver. No intrahepatic mass. There is a normal appearance of the hepatic IVC and proximal abdominal aorta. There is no evidence of ascites. The gallbladder is surgically absent. The common bile duct is of normal size and measures 7 mm in diameter at the level of the truong hepatis. The pancreas appears normal. There is no evidence of a stone or hydronephrosis within the right kidney. The right kidney measures 9.7 cm in length. IMPRESSION: Mild increased echogenicity of the hepatic portal triads which could suggest acute hepatitis and recommend clinical correlation. Dictated by Abdiel Reid MD @ 04/21/2022 11:35:32 AM (Electronically Signed)
[2022-04-21] MEDS: 0.9 % SODIUM CHLORIDE 250 ml IV (10:03)
[2022-04-21] MEDS: cefTRIAXone 2 GM in 0.9 % SODIUM CHLORIDE Mini-bag 100 ML IVPB (11:35)
--- NOTE | 2022-04-21 12:50 | P.IMPN_ITS ---
Progress Note: A&P Assessment and plan (1) Infection, wound status post trauma: Problem details: DOI: April 14 kicked by horse with laceration of left thigh. s/p Vanc and Zosyn. transitioned to ceftriaxone. wound culture - Group G strep. PO oxy vs IV morphine and dilaudid. po ativan vs IV ativan. tylenol and toradol is appropriate between dressing changes; premdicate as needed for wound cleansing. continue abx, narrow when C/S has returned. MRI reassuring for no deep seated infection/osteo or abscess. Status: Acute (2) Elevated liver transaminase level: Problem details: Unclear cause. Not apparently symptomatic. Continue to follow. If increasing or symptomatic do further evaluation, possibly ultrasound. Otherwise outpatient evaluation. In her medical record the last transaminases were in March 2019 and were normal. Cholecystectomy April 2009 Status: Acute (3) Anxiety: Status: Acute Subjective Date Seen: 04/21/22 Interval history: Daily Progress Note - Hospital Medicine Day #: 3 CC: left thigh infection (cellulitis). s/p I/D s/p 2 days of Vanc and Zosyn, Day 1 of Ceftriaxone u/s abdomen today Mild increased echogenicity of the hepatic portal triads which could suggest acute hepatitis and recommend clinical correlation. discussed MRI completed yesterday with general surgery OVERNIGHT UPDATES FROM STAFF & MED, LAB, IMAGING UPDATES doing better; less achy. rested better. Hemoglobin down trending minimally Electrolytes normal LFTs have been mildly elevated since arrival. CRP down trending. Blood cultures x2 negative Likely strep growing from wound, sensitivities and identification pending. MRI left thigh Skin defect and shallow subcutaneous defect ventral medial proximal left thigh. Diameter approximately 25 mm and depth roughly 8 mm. Surrounding enhancing skin thickening and subcutaneous edema without organized fluid. No fascia edema or enhancement. No muscle enhancement or edema present. No MR findings for foreign body. Review of Systems: See subjective Cardiac: No new chest pain/pressure/palpitations. Respiratory: no new dyspnea. GI: No abdominal bloating Objective: Vitals: see above Lungs: Clear. Cardiac: S1S2. Left thigh: surgical wound previously explored by general surgery; not addressed today in my exam. Disposition/Potential discharge - Likely to return to previous living situation. Total time is 35 minutes with greater than 50% spent in counseling and coordination of care. Exam Const: Vital Signs, click to edit/add: Vital Signs - 24 hr 04/20/22 17:51 04/20/22 17:51 04/20/22 19:00 Temperature 98.0 F 98 F Pulse Rate [Pulse Oximeter] 73 79 67 Respiratory Rate 18 18 18 Blood Pressure [Le ft Arm] 112/76 115/76 Pulse Oximetry 93 94 Oxygen Delivery Me thod Room Air Room Air 04/20/22 23:30 04/20/22 23:30 04/21/22 04:00 Temperature 97.8 F 97.9 F Pulse Rate [Pulse Oximeter] 60 60 72 Respiratory Rate 18 18 18 Blood Pressure [Le ft Arm] 113/77 119/74 Pulse Oximetry 91 93 Oxygen Delivery Me thod Room Air Room Air 04/21/22 07:50 04/21/22 07:00 Temperature 98.2 F Pulse Rate [Pulse Oximeter] 65 65 Respiratory Rate 14 14 Blood Pressure [Le ft Arm] 118/72 Pulse Oximetry 93 Oxygen Delivery Me thod Room Air Labs Labs: Laboratory Results - last 24 hr 04/21/22 04/21/22 07:06 07:06 WBC 7.72 RBC 3.24 L Hgb 9.9 L Hct 30.6 L MCV 94 MCH 31 MCHC 32 RDW Coeff of Dede 12.1 Plt Count 184 Neut % (Auto) 73.7 H Lymph % (Auto) 15.7 L [place] % (Auto) 7.8 Eos % (Auto) 2.1 Baso % (Auto) 0.4 Neut # (Auto) 5.70 Lymph # (Auto) 1.20 [place] # (Auto) 0.60 Eos # (Auto) 0.16 Baso # (Auto) 0.03 Abs Immat Gran (auto) 0.02 Sodium 138 Potassium 4.3 Chloride 106 Carbon Dioxide 27 BUN 7 Creatinine 1.1 Estimated Creat Clear 64.92 Estimated GFR 66 Glucose 94 Calcium 8.7 Total Bilirubin 0.5 AST 67 H ALT 84 H Alkaline Phosphatase 100 C-Reactive Protein 2.1 H Total Protein 5.8 L Albumin 3.3
[2022-04-21 13:19] LABS: Gamma Glutamyl Transpeptidase* 90 U/L (8-55)
--- NOTE | 2022-04-21 18:46 | PC.NURSE ---
End of Shift: Patient cooperative and very indifferent about all cares. Patient vitally stable, lungs with fine crackles in lower lobes, BW WNL, IV intact. Patient sats in low 90's, earlier in the shift patient's sats would drop into mid 80's. Patient also reported chest tightness. MD notified, aerobika ordered and for patient to be up in chair. Patient was up in chair for a couple hours and advertising copy writer asks patient to use aerobika with vitals. Wound dressing change using vaush, 2x2, and 4x4 gauze. [employer] mentioned to patient that she had seemed upset today the past couple days and if there was anything the advertising copy writer could do better, patient said she was not upset and that she didn't need anything else. Later in shift patient became upset with advertising copy writer and expressed her concerns with this writers cares and yelled at the advertising copy writer to get out of her room. MD was notified about the need to inform patient regarding ultrasound, LFT labs, and her unhappiness.
[2022-04-21] MEDS: MELATONIN 3 MG TABLET PO (20:45)
[2022-04-21] MEDS: TOPIRAMATE 25 MG TABLET 75 MG PO (20:45)
[2022-04-21] MEDS: LORazepam 0.5 MG TABLET PO (20:45)
[2022-04-21] MEDS: FLUOXETINE HCL 20 MG CAPSULE 60 MG PO (20:45)
[2022-04-21] MEDS: DULOXETINE 30 MG CAPSULE DR 60 MG PO (20:45)
[2022-04-21] MEDS: VALACYCLOVIR HCL 500 MG TABLET PO (20:45)
[2022-04-21] MEDS: ONDANSETRON 2 MG/ML inj 4 MG IVP (20:55)
[2022-04-21] MEDS: TRAZODONE HCL 50 MG TABLET 200 MG PO (23:04)
[2022-04-22 03:00] VITALS: RESP 16
--- NOTE | 2022-04-22 05:09 | PC.NURSE ---
patient up ad tavia, cellulitis much improved, redness subsided, pain well managed. patient O2 sats low to mid 90s on RA, arobika encouraged.
[2022-04-22 07:25] LABS: Basophils Absolute Auto 0.02 K/uL (0.00-0.30); Basophils Percent Auto 0.2 % (0.0-3.0); Eosinophils Absolute Auto 0.12 K/uL (0.00-0.50); Eosinophils Percent Auto 1.4 % (0.0-7.0); Hemoglobin* 10.7 gm/dL (12.0-16.0); Immature Granulocytes Abs Auto 0.03 K/uL (0.00-0.30); Lymphocytes Percent Auto 12.2 % (20-44); Mean Corpuscular HGB Conc 33 gm/dL (32-36); Mean Corpuscular Hemoglobin 31 pg (26-34); Mean Corpuscular Volume 91 fL (80-100); Neutrophils Percent Auto 79.9 % (42.0-72.0); Platelet Count* 246 K/uL (140-440); RDW Coefficient of Variation % 12.1 % (11.5-15.5)
[2022-04-22 07:30] LABS: Slide Review Reflex No
--- NOTE | 2022-04-22 07:49 | CRLHL7_ITS ---
For Patients: As a result of the Century Cures Act, medical imaging exams and procedure reports are released immediately into your electronic medical record. You may view this report before your referring provider. If you have questions, please contact your health care provider. INDICATION: SHORTNESS OF BREATH, PLEURITIC CP COMPARISON: none TECHNIQUE: CT volumetric acquisition was performed of the thorax during intravenous infusion of 125 cc of Omnipaque-350 nonionic intravenous contrast. Please note that all CT scans at this facility use dose modulation, iterative reconstruction, and/or weight-based dosing when appropriate to reduce radiation dose to as low as reasonably achievable. FINDINGS: No pulmonary embolism is present. Small bilateral pleural effusions are present. Patchy ground-glass opacities are located within the upper lobes bilaterally along with the right middle lobe. Additional densities within the right lower lobe are present. Mild left lower lobe atelectasis. No pneumothorax. No evidence of hydrostatic edema. Mildly prominent mediastinal and bilateral hilar lymph nodes. Normal breast tissue. Visualized thyroid normal. IMPRESSION: No evidence of pulmonary thromboembolism. Bilateral patchy infiltrates and small pleural effusions. Reactive mediastinal and bilateral hilar adenopathy. Please note that all CT scans at this facility use dose modulation, iterative reconstruction, and/or weight-based dosing when appropriate to reduce radiation dose to as low as reasonably achievable. Dictated by Abdiel Reid MD @ 04/22/2022 9:48:15 AM (Electronically Signed)
[2022-04-22 08:00] VITALS: BP 120/72; PULSE 68; RESP 16; TEMP 36.8; O2SAT 91
[2022-04-22 08:04] LABS: Albumin* 3.4 g/dL (3.3-5.0); Chloride* 107 mmol/L (96-114); Sodium* 139 mmol/L (135-149)
[2022-04-22 08:05] LABS: Potassium* 3.8 mmol/L (3.6-5.1)
[2022-04-22 08:07] LABS: Aspartate Amino Transferase* 40 U/L (12-35); Bilirubin Total* 0.5 mg/dL (0.1-1.5); Carbon Dioxide* 24 mmol/L (20-32); Est. Creatinine Clearance* 71.41; Estimated Glomerular Filt Rate 74 ml/min
[2022-04-22 08:08] LABS: Alanine Aminotransferase* 69 U/L (4-35); Alkaline Phosphatase* 108 U/L (40-150); Blood Urea Nitrogen* 6 mg/dL (5-24); Calcium* 8.8 mg/dL (8.4-10.6); Gamma Glutamyl Transpeptidase* 88 U/L (8-55); Glucose* 102 mg/dL (60-115); Total Protein* 6.2 g/dL (6.0-8.3)
[2022-04-22 08:10] LABS: C Reactive Protein* 2.4 mg/dL (0.5-1.0)
[2022-04-22] MEDS: ACETAMINOPHEN 500 MG TABLET 1000 MG PO (10:18)
[2022-04-22] MEDS: cefTRIAXone 2 GM in 0.9 % SODIUM CHLORIDE Mini-bag 100 ML IVPB (10:19)
--- NOTE | 2022-04-22 10:23 | P.GSPN_ITS ---
Subjective Subjective Date Seen: 04/22/22 Interval history: Patient is doing well from a wound perspective this morning. Her redness has significantly improved, swelling has decreased. The area is press tender smoke signal to the touch, the patient is not requiring any narcotic pain medicine. She is comfortable with changing the dressings herself. I had a long talk with the patient this morning, she is slightly irritated about some of the cares that she has had during this hospital stay. I did review with her all of my recommendations, as well as recent studies that have come back. Will defer to Dr. Saavedra for further discussion. I did request the patient advocate come and speak with the patient later today. Exam Narrative: Exam Narrative: General: Alert and oriented, no acute distress Extremities: Left anterior medial thigh wound with dressing in place. Significantly improved erythema with minimal induration. Areas press tender smoke signal, but less sensitive this morning. Dressing was changed at bedside. Wound bed with healthy granulation tissue, no significant fibrinous exudate. Const: Vital Signs, click to edit/add: Vital Signs - 24 hr 04/21/22 11:00 04/21/22 15:00 04/21/22 15:00 Temperature 98.2 F 98.2 F Pulse Rate [Pulse Oximeter] 56 L 56 L 56 L Respiratory Rate 12 14 14 Blood Pressure [Ri ght Arm] 118/70 123/69 Pulse Oximetry 90 90 Oxygen Delivery Me thod Room Air Room Air 04/21/22 19:00 04/21/22 22:57 04/21/22 23:00 Temperature 98.2 F 98 F Pulse Rate [Pulse Oximeter] 55 L 68 68 Respiratory Rate 14 14 14 Blood Pressure [Ri ght Arm] 123/75 126/83 Pulse Oximetry 92 91 Oxygen Delivery Me thod Room Air Room Air 04/22/22 03:00 04/22/22 08:00 04/22/22 08:00 Temperature 98.3 F Pulse Rate [Pulse Oximeter] 68 68 Respiratory Rate 16 16 16 Blood Pressure [Ri ght Arm] 120/72 Pulse Oximetry 91 Oxygen Delivery Me thod Room Air Labs/Imaging Labs Labs: CRP remains elevated at 2.4, and no leukocytosis Imaging Imaging: CT chest reviewed, no evidence of PE some bilateral pulmonary infiltrates and small bilateral pleural effusions. Abdominal ultrasound reviewed, hepatitis mild. Progress Note: A&P Assessment and plan (1) Infection, wound status post trauma: Problem details: DOI: April 14 kicked by horse with laceration of left thigh. s/p Vanc and Zosyn. transitioned to ceftriaxone. wound culture - Group G strep. PO oxy vs IV morphine and dilaudid. po ativan vs IV ativan. tylenol and toradol is appropriate between dressing changes; premdicate as needed for wound cleansing. continue abx, narrow when C/S has returned. MRI reassuring for no deep seated infection/osteo or abscess. Status: Acute Assessment and Plan: Patient with surrounding cellulitis and associated abscess secondary to injury from a dirty nail, now status post debridement. Patient continues to improve. She was transitioned to Rocephin, which should apply appropriate coverage. Recommend b.i.d. dressing changes while in the hospital and daily at home. Patient will be doing her own dressing changes. Okay to discharge when medically appropriate. Follow-up orders have been placed for follow-up with her PCP next week and to see me in clinic in 2 weeks.
[2022-04-22 11:45] VITALS: BP 127/54; PULSE 54; RESP 16; TEMP 36.7; O2SAT 91
--- NOTE | 2022-04-22 14:22 | P.DS_ITS ---
DS: Providers Provider Date Seen: 04/22/22 Date of admission: 04/20/22 09:16 Primary care physician: Abdiel Zayas MD Admitting Clinician: Abner Bojorquez MD Attending Physician on discharge: Azucena Nation MD [place] Hospitalist Date of Discharge: 04/22/22 DS: Diagnosis Discharge Diagnosis (1) Infection, wound status post trauma: Status: Acute Problem details: DOI: April 14 kicked by horse with laceration of left thigh. s/p Vanc and Zosyn. transitioned to ceftriaxone. wound culture - Group G strep. Discharged on clindamycin. MRI reassuring for no deep seated infection/osteo or abscess. CT chest shows some patchy infiltrates and tiny bilateral effusions. Patient did have COVID 3 weeks ago and likely has some atelectasis from being hospitalized this week. No further or additional antibiotics. I SP anaerobic of recommended. Abdominal ultrasound showed some mild inflammation of the hepatic ducts. This is likely transient and related to infection and/or IV medications. This should be rechecked in 2-3 weeks. (2) Anxiety: Status: Acute (3) Elevated liver function tests: Status: Acute DS: Summary Hospital Course Hospital Course: HOSPITALIST DISCHARGE SUMMARY ATTENDING PHYSICIAN: Azucena Nation MD FINAL DIAGNOSIS: Group G Streptococcus cellulitis, left thigh Elevated liver function tests Mild dyspnea HOSPITAL FOLLOWUP ISSUES: 1. Left anterior thigh cellulitis after puncture wound. MRI showed no deep- seated abscess or osteomyelitis. She should finish all of the clindamycin and see her PCP and the general surgeon for further follow-up. 2. Abnormal LFTs and abnormal chest CT. The 1st is likely general transaminitis from infection and IV antibiotic. The should be repeated in 4-[address] was ordered secondary to some mild chest pain, pleurisy and shortness of breath. It showed some patchy infiltrates but I feel like these findings are more related to her COVID and breath from atelectasis from being hospitalized. No further different antibiotics. Aerobic up and incentive spirometry talk. REFERRALS WHILE ADMITTED: PT REFERRALS AFTER DISCHARGE: PCP and return to General surgery BRIEF HOSPITAL COURSE: Lorna failed outpatient antibiotics for a puncture wound from a nail to her left thigh. She was noted to have a purulent superficial abscess under her previous sutures and increasing pain on arrival to the ED. Her wound was irrigated. Cultures grew a group G Streptococcus. She responded well to IV antibiotics. These were narrowed and then transferred to oral at discharge. MRI showed what we expected a cellulitis without abscess or osteomyelitis. She did have a bump in her LFTs and ultrasound showed some mild inflammation. She also had some pleuritic chest pain and a chest CT shows some mild patchy infiltrates and tiny pleural effusions. I think this is best explain from a recent COVID infection and atelectasis. She is discharged this morning on p.o. clindamycin with follow-up with her doctor/PCP next week in the general surgeon in 2 weeks. VITAL SIGN, MEDICATION, LAB/MICRO, IMAGING SUMMARY (full details available in account tabs or by records request) DISCHARGE MEDICATIONS: See Reconciled list REVIEW OF SYSTEMS No new chest pain or dyspnea Pain controlled No voiding difficulties Tolerating diet challenge PHYSICAL EXAM: CONSTITUTIONAL: VITAL SIGNS: see record. HEENT: Normocephalic, atraumatic. PERRL, EOMI, conjunctivae pink, no scleral icterus. Ears and nose externally normal. Pharynx normal. NECK: No JVD. No carotid bruit, no thyromegaly, no adenopathy. CHEST: Clear to auscultation bilaterally. HEART: S1 and S2 normal. Edema ABDOMEN: Soft, nontender. Normal bowel sounds. MUSCULOSKELETAL: No gross joint deformity or swelling. NEURO: Cranial nerves intact. Grossly intact. No asymmetric findings. SKIN: Wound is shallow and has healthy base. Erythema is much improved. No obvious lymphadenopathy. PSYCHIATRIC: Mood euthymic. DISPOSITION: Time spent on discharge 37 minutes. Time Spent with Patient Time attestation: Total time spent providing and/or coordinating discharge services: Exam Const: Vital Signs, click to edit/add: Vital Signs - 24 hr 04/21/22 15:00 04/21/22 15:00 04/21/22 19:00 Temperature 98.2 F 98.2 F Pulse Rate [Pulse Oximeter] 56 L 56 L 55 L Respiratory Rate 14 14 14 Blood Pressure [Ri ght Arm] 123/69 123/75 Pulse Oximetry 90 92 Oxygen Delivery Me thod Room Air Room Air 04/21/22 22:57 04/21/22 23:00 04/22/22 03:00 Temperature 98 F Pulse Rate [Pulse Oximeter] 68 68 Respiratory Rate 14 14 16 Blood Pressure [Ri ght Arm] 126/83 Pulse Oximetry 91 Oxygen Delivery Me thod Room Air 04/22/22 08:00 04/22/22 08:00 04/22/22 11:45 Temperature 98.3 F 98.1 F Pulse Rate [Pulse Oximeter] 68 68 54 L Respiratory Rate 16 16 16 Blood Pressure [Ri ght Arm] 120/72 127/54 L Pulse Oximetry 91 91 Oxygen Delivery Me thod Room Air Room Air DS: Data Data Completed and Pending Labs on day of discharge: Labs from last 24 hours 04/22/22 04/22/22 06:53 06:53 WBC 8.70 RBC 3.50 L Hgb 10.7 L Hct 32.0 L MCV 91 MCH 31 MCHC 33 RDW Coeff of Dede 12.1 Plt Count 246 Neut % (Auto) 79.9 H Lymph % (Auto) 12.2 L [place] % (Auto) 6.0 Eos % (Auto) 1.4 Baso % (Auto) 0.2 Neut # (Auto) 7.00 Lymph # (Auto) 1.10 [place] # (Auto) 0.50 Eos # (Auto) 0.12 Baso # (Auto) 0.02 Abs Immat Gran (auto) 0.03 Sodium 139 Potassium 3.8 Chloride 107 Carbon Dioxide 24 BUN 6 Creatinine 1.0 Estimated Creat Clear 71.41 Estimated GFR 74 Glucose 102 Calcium 8.8 Total Bilirubin 0.5 GGT 88 H AST 40 H ALT 69 H Alkaline Phosphatase 108 C-Reactive Protein 2.4 H Total Protein 6.2 Albumin 3.4 Preliminary micro results at discharge 04/18/22 21:32 Wound Culture - Preliminary Leg Left 04/18/22 19:49 Blood Culture - Preliminary Blood NO GROWTH AFTER 72 HOURS 04/18/22 19:57 Blood Culture - Preliminary Blood NO GROWTH AFTER 72 HOURS Discharge Plan Discharge Disposition: Home, Self-Care Date of Admission: 04/20/22 09:16 Attending Provider on Discharge: Azucena Nation Primary Care Provider: Abdiel Zayas Condition: Stable Anticipated Discharge Date/Time: 04/22/22 11:32 Discharge Medications: New Vashe Wound Therapy 0.033 % irrigation solution 1 irrig irrigation DAILY PRN (Reason: wound care) Qty: 6000 0RF clindamycin HCl 300 mg capsule 300 mg PO TID Qty: 15 0RF Continued trazodone 100 mg tablet 200 mg PO HS fluoxetine 20 mg capsule 60 mg PO HS duloxetine [Cymbalta] 60 mg capsule,delayed release(DR/EC) 60 mg PO HS topiramate 25 mg tablet 75 mg PO HS valacyclovir 500 mg tablet 500 mg PO HS Label Comments: TAKE ONE TABLET BY MOUTH TWICE A DAY FOR 10 DAYS THEN RETURN TO ONE TABLET DAILY Discontinued cefadroxil 500 mg capsule 500 mg PO BID Label Comments: TAKE ONE CAPSULE BY MOUTH TWICE A DAY FOR 10 DAYS sulfamethoxazole-trimethoprim [Bactrim DS] 800-160 mg tablet 1 tab PO BID Discharge Orders: Discharge Order (Routine); Ordered 04/22/22 Ordered By: Azucena Nation Patient Education: Clindamycin (By mouth), Cellulitis (GEN) Additional Instructions: 1. Work restrictions: No work thru 04/27/22. 04/28 and 04/29 are half days; back to work on 05/02 2. Finish all antibiotics; use the ISP and Aerobika a couple of times a day or as you think of it. 3. F/U with PCP and general surgeon as outlined. Activity Level: Activity as Tolerated Discharge Diet: Regular Follow Up Appointments: Valeria Winter MD [Staff Physician] - 05/03/22 2:00 pm (Post op with at [facility] in [place] only location I could get on this date.) Abdiel Zayas MD [Primary Care Provider] - 04/26/22 1:45 pm (Follow up with one of PCP partners) Forms: [employer] Info Instructions
[2022-04-22 15:14] VITALS: BP 120/72; PULSE 68; RESP 16; TEMP 36.7
--- NOTE | 2022-04-22 15:20 | PC.NURSE ---
Discharge. ? Pt is pleasant.? left upper leg pain.? pain has been 2-5/10? she is getting po Tylenol for pain with relief. ?md did a dressing changed and told md she needed pain meds, pain meds given.? ? Reddened around the wound is better.? she is up ab tavia.? she is eating, drinking and voiding. ? her mom was here. Pt sats in low 90's, 88 with sleep, md was updated and CT was ordered. IS was started and Aerobika use. 5 times every hour. Wound dressing change using vash, 2x2, and 4x4 gauze. she was sent home with dressing supplies.
[2022-04-22 21:46] LABS: Hepatitis B Core Antibody, IgM Negative (Negative); Hepatitis B Surface Antigen Negative (Negative); Hepatitis C Antibody by CIA Negative (Negative)
== END 2022-04-22 14:35 | disposition home or self-care (01) | DRG 571 ==
LOC: ED 21:29 → MEDSURG 04-19 01:25
PROVIDERS: Family Medicine; Admitting Provider Internal Medicine; Emergency Provider Internal Medicine; PCP Family Medicine; Visit Provider Internal Medicine
DX: L03.116 Cellulitis of left lower limb (principal); J91.8 Pleural effusion in other conditions classified elsewhere; J98.11 Atelectasis; U09.9 Post COVID-19 condition, unspecified; S71.132A Puncture wound without foreign body, left thigh, initial encounter; B95.4 Other streptococcus as the cause of diseases classified elsewhere; K75.89 Other specified inflammatory liver diseases; W55.12XA Struck by horse, initial encounter; G47.00 Insomnia, unspecified; F41.9 Anxiety disorder, unspecified
CPT/HCPCS: 36415; 71260; 73720; 76705; 76882; 80048; 80053; 80074; 80076; 82803; 82977; 83605; 85025; 85610; 85651; 86140; 87040; 87070; 87077; 87186; 87635; 93005; 99283; 99284; 99285; A9270; A9575; G0378; J0696; J1170; J1200; J1885; J2060; J2270; J2405; J2543; J3370; J7050; J7120; Q9967

== ENCOUNTER 2023-02-24 19:36 | Emergency (ER) | payer OTHER, SELFPAY ==
[2023-02-24] VITALS (13 sets, daily range): BP systolic 114–138; BP diastolic 72–83; PULSE 71–89; RESP 16–20; TEMP 36.2–36.8; O2SAT 94–99; BMI 27.0
[2023-02-24] MEDS: 0.9 % SODIUM CHLORIDE 1000 ml 1,000 ML IV (19:45)
--- NOTE | 2023-02-24 19:51 | CRLHL7_ITS ---
For Patients: As a result of the Cures Act, medical imaging exams and procedure reports are released immediately into your electronic medical record. You may view this report before your referring provider. If you have questions, please contact your health care provider. INDICATION: FALL FROM HORSE RIGHT HAND AND RIGHT WRIST No fracture, dislocation, or destructive lesion of bone is seen. No arthritic changes or soft tissue abnormalities are identified. IMPRESSION: Negative right hand and wrist radiographs. ALLEGRA DOE MD [employer] Dictated by: Fletcher Doe MD @ 02/24/2023 21:41:25 (Electronically Signed)
--- NOTE | 2023-02-24 19:51 | CRLHL7_ITS ---
For Patients: As a result of the Cures Act, medical imaging exams and procedure reports are released immediately into your electronic medical record. You may view this report before your referring provider. If you have questions, please contact your health care provider. Indication: Trauma. Technique: Right humerus, 2 views. Comparison: None. Findings: Bones: Alignment is normal. No fractures or bone lesions. Joint spaces: Unremarkable. Soft tissues: Unremarkable. Impression: No sign of acute injury. Dictated by Jenn Batista MD @ 02/24/2023 9:29:31 PM (Electronically Signed)
[2023-02-24] MEDS: ONDANSETRON 2 MG/ML inj 4 MG IVP (20:15)
[2023-02-24] MEDS: MORPHINE 4 MG/ML INJ IVP (20:15)
--- NOTE | 2023-02-24 20:29 | ED.FALL ---
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 When I learned of this I did call a TTA given the mechanism of injury. Patient has a horse that is 16 hands tall and was at a full gallop today when she was thrown off to the side and thinks she went under the horse. This same horse through her daughter last week was 12 and the daughter broke her hip. Lorna thinks that she went under the horse when this happened. She did not lose consciousness and notes that she does not have a headache but she did break her sunglasses. She also denies neck pain at this time. Her biggest concern is that she had a hard time breathing when she initially fell off. She thinks the wind was knocked out of her. She has pain in her left shoulder as well as her entire right arm wrist and hand. She denies nausea vomiting abdominal pain at this time. Denies any lower extremity injury. Movement increases her discomfort. She is in room 6. Related Data Home Medications Medication Instructions Recorded Confirmed duloxetine 60 mg capsule,delayed 60 mg PO HS 04/19/22 04/19/22 release (Cymbalta) topiramate 25 mg tablet 75 mg PO HS 04/19/22 04/19/22 valacyclovir 500 mg tablet 500 mg PO HS 04/19/22 04/19/22 Previous Rx's Medication Instructions Recorded clindamycin HCl 300 mg capsule 300 mg PO TID #15 caps 04/22/22 sodium chloride-hypochlorous acid 1 irrig irrigation DAILY PRN wound 04/22/22 0.033 % irrigation solution (Vashe care #6,000 mL Wound Therapy) valacyclovir 500 mg tablet 500 mg PO BID #100 tabs 06/14/22 trazodone 100 mg tablet 200 mg (2 x 100 mg) PO HS #60 tabs 09/06/22 fluoxetine 20 mg capsule 60 mg (3 x 20 mg) PO HS #90 caps 09/26/22 Allergies Allergy/AdvReac Type Severity Reaction Status Date / Time hydrocodone Allergy Unknown Vomiting Verified 02/24/23 21:14 amoxicillin [From Augmentin] AdvReac Nausea Verified 02/24/23 21:14 clavulanic acid AdvReac Nausea Verified 02/24/23 21:14 [From Augmentin] Latex Allergy Mild Uncoded 02/24/23 21:14 Review of Systems Status of ROS: Reports: 10 or more systems reviewed and unremarkable except as noted in History and below Const: Denies: fever or chills Eyes: Denies: change in vision or blurry vision ENMT: Denies: neck pain, throat swelling or difficulty swallowing Cardio: Denies: chest pain, lightheadedness or shortness of breath with exertion Resp: Denies: shortness of breath or cough GI: Denies: abdominal pain, nausea, vomiting or difficulty swallowing Musculo: Reports: extremity pain; Denies: neck pain Integ/Breast: Reports: skin pain Neuro: Denies: headache or numbness in extremities Allergy/Immuno: Denies: throat swelling PFSH PFSH Medical History History of removal of breast implant (2019) ?Z98.86 - Personal history of breast implant removal (ICD-10) Elevated liver transaminase level ?R74.01 - Elevation of levels of liver transaminase levels (ICD-10) Insomnia ?G47.00 - Insomnia, unspecified (ICD-10) Surgical History History of suburethral sling procedure (07/20/21) ?Z98.890 - Other specified postprocedural states (ICD-10) History of hysterectomy ?Z90.710 - Acquired absence of both cervix and uterus (ICD-10) History of breast augmentation (12/30/08) ?Z98.82 - Breast implant status (ICD-10) History of adenoidectomy (12/30/08) ?Z90.89 - Acquired absence of other organs (ICD-10) Social History Narrative: Single 2 kids [employer] Smoking Status: Current every day smoker Do you use any of these nicotine containing products: None Second hand tobacco smoke exposure: No How often do you have a drink containing alcohol: never How often do you have six or more drinks on one occasion: Never AUDIT-C Alcohol total score: 0 Non-prescribed substance use: denies use Caffeine: Yes Little interest or pleasure in doing things: not at all Feeling down, depressed, or hopeless: not at all service: No Exam Narrative: Exam Narrative: Airway: Open Breathing: Easy Circulation: No obvious bleeding. Capillary refill is good. Warmth in distal extremities. Disability: GCS of 15 pupils equal round reactive. Patient is alert and oriented. Mentating normally. Eyes are bright EOM is full and pupils are reactive. Head is atraumatic normocephalic. Palpation of midline cervical spine without discomfort. Passive range of motion with rotation flexion extension without pain. Followed by active range of motion without discomfort in all planes. Heart with a regular rate and rhythm and lungs are clear. Abdomen is soft nontender. Palpation over left shoulder especially at the AC joint is with discomfort. I do not see any bruising at this time. Distally to this area humerus elbow and hand without discomfort Right arm shows significant bruising it ecchymosis in the volar surface of the upper humeral arm. Patient also noted to have dorsal ecchymosis from the mid aspect of the forearm distally gone to the fingers. Patient is having a hard time with extension of the 4th and 5th finger. Movement of the wrist causes a significant discomfort. Pelvis appears stable. Lower extremities palpated without any discomfort. Back exam: No pain with palpation down thoracic or lumbar spine. Const: Vital Signs, click to edit/add: Vital Signs - 24 hr 02/24/23 19:45 02/24/23 20:32 02/24/23 20:33 Temperature 97.2 F L Pulse Rate 75 76 Pulse Rate [Pulse Oximeter] 88 Respiratory Rate 20 16 Blood Pressure 120/80 Blood Pressure [Ri ght Upper Arm] 114/75 Pulse Oximetry 99 96 98 02/24/23 20:42 02/24/23 20:45 02/24/23 21:11 Temperature Pulse Rate 85 71 Pulse Rate [Pulse Oximeter] Respiratory Rate 16 16 Blood Pressure 120/72 138/77 Blood Pressure [Ri ght Upper Arm] Pulse Oximetry 98 98 98 02/24/23 21:13 02/24/23 21:22 02/24/23 21:32 Temperature Pulse Rate 86 89 82 Pulse Rate [Pulse Oximeter] Respiratory Rate 16 16 16 Blood Pressure 131/78 129/81 125/75 Blood Pressure [Ri ght Upper Arm] Pulse Oximetry 99 96 96 02/24/23 21:42 02/24/23 21:52 02/24/23 22:02 Temperature 98.2 F Pulse Rate 85 81 Pulse Rate [Pulse Oximeter] 78 Respiratory Rate 16 16 16 Blood Pressure 130/83 122/80 Blood Pressure [Ri ght Upper Arm] 125/77 Pulse Oximetry 96 94 94 Documenting provider has reviewed patient's vital signs: yes Course Course Hospital Course: Given mechanism of injury patient is made into TTA. Recommend CT of the chest and abdomen at this time. Recommend plain films of the left shoulder and right upper extremity. Will also obtain CBC, comprehensive panel, urinalysis. Patient did have an IV placed and initially was given morphine 4 mg Zofran 4 mg. Still continues to have significant discomfort in the she is given Dilaudid 0.5 mg IV. Reevaluation(s) Reevaluation #1: Patient notes continued pain in she is given a 2nd dose of Dilaudid 0.5 mg IV. Vital Signs Vital signs: Initial Vital Signs Temperature 97.2 F L 02/24/23 19:45 Temperature Source Temporal Artery Scan 02/24/23 19:45 Pulse Rate 88 02/24/23 19:45 Respiratory Rate 20 02/24/23 19:45 Blood Pressure 114/75 02/24/23 19:45 Blood Pressure Mean 88 02/24/23 19:45 Pulse Oximetry 99 02/24/23 19:45 Vital Signs Temperature 97.2 F L 02/24/23 19:45 Pulse Rate 88 02/24/23 19:45 Respiratory Rate 20 02/24/23 19:45 Blood Pressure 114/75 02/24/23 19:45 Pulse Oximetry 99 02/24/23 19:45 Temperature 98.2 F 02/24/23 22:02 Pulse Rate 78 02/24/23 22:02 Respiratory Rate 16 02/24/23 22:02 Blood Pressure 125/77 02/24/23 22:02 Pulse Oximetry 94 02/24/23 22:02 MDM - Fall MDM Narrative Medical decision making narrative: 1. Soft tissue trauma-this from a fall from a very tall horse. Patient fell onto her left side, broke her sunglasses, injuring both upper extremities. Initially significant difficulty breathing. No loss of consciousness. Cervical spine is cleared. Chest abdomen and pelvis CT as well as upper extremity x-rays all negative. Re-examination shows no snuffbox tenderness on the right wrist. Patient received Zofran, morphine 4 mg, Dilaudid 0.5 mg x 2 while in the ED. Patient notes that hydrocodone causes her vomiting and therefore declines any narcotic pain medicine for home but is receptive to using Flexeril 10 mg p.o. t.i.d. p.r.n. number 30 via [employer]. I asked that she not use this medication with any other sedating medications. She may use ibuprofen or Tylenol as needed. 2. Left shoulder injury-suspect rotator cuff injury. No evidence of bony injury. May need MRI if she is not improving. 3. Soft tissue injury right arm-extensive bruising noted of the right arm. Fortunately no evidence of underlying fracture. No snuffbox discomfort upon reexamination. 4. Disposition-home at this time. Rest. Seek medical attention for worsening symptoms. Note for no work on Monday02/27/2023. Patient I feel is very adrian today given the circumstances of her injury. I do ask that if she has the onset of new symptoms or worsening injury she will need to return for re-evaluation. Patient informed that she does have evidence of emphysema noted on her CT. She is a smoker and we did discuss smoking cessation. Medical Records Attestation: I reviewed the patient's medical records. Lab Data Attestation: I reviewed the patient's lab results. Labs: Lab Results 02/24/23 02/24/23 Range/Units 20:07 20:30 WBC 10.20 (4.50-11.00) K/uL RBC 4.01 (4.00-5.20) m/uL Hgb 12.1 (12.0-16.0) gm/dL Hct 36.8 (33.0-51.0) % MCV 92 (80-100) fL MCH 30 (26-34) pg MCHC 33 (32-36) gm/dL RDW Coeff of Dede 12.7 (11.5-15.5) % Plt Count 311 (140-440) K/uL Neut % (Auto) 66.0 (42.0-72.0) % Lymph % (Auto) 24.4 (20-44) % King % (Auto) 7.0 (0.0-11.0) % Eos % (Auto) 2.0 (0.0-7.0) % Baso % (Auto) 0.3 (0.0-3.0) % Neut # (Auto) 6.74 (1.7-7.0) K/uL Lymph # (Auto) 2.49 (0.90-2.90) K/uL King # (Auto) 0.70 (0.00-0.90) K/UL Eos # (Auto) 0.20 (0.00-0.50) K/uL Baso # (Auto) 0.03 (0.00-0.30) K/uL Abs Immat Gran (auto) 0.03 (0.00-0.30) K/uL Imm/Tot Granulo (auto) 0.3 % Sodium 138 (135-149) mmol/L Potassium 3.6 (3.6-5.1) mmol/L Chloride 107 (96-114) mmol/L Carbon Dioxide 21 (20-32) mmol/L BUN 14 (5-24) mg/dL Creatinine 1.0 (0.5-1.5) mg/dL Estimated Creat Clear 70.71 Estimated GFR 73 ml/min Glucose 77 (60-115) mg/dL Total Bilirubin 0.4 (0.1-1.5) mg/dL AST 24 (12-35) U/L ALT 18 (4-35) U/L Alkaline Phosphatase 64 (40-150) U/L Total Protein 7.3 (6.0-8.3) g/dL Albumin 4.4 (3.3-5.0) g/dL Urine Color Yellow (Yellow) Urine Appearance Clear (Clear) Urine pH 6.5 (5.0-8.5) Ur Specific [place] <= 1.005 (1.000-1.030) Urine Protein Negative (Negative) Urine Glucose (UA) Negative (Negative) Urine Ketones Negative (Negative) Urine Blood Negative (Negative) Urine Nitrite Negative (Negative) Urine Bilirubin Negative (Negative) Urine Urobilinogen 0.2 (0.2-1.0) Ur Leukocyte Esterase Negative (Negative) Urine RBC 0-2 (0-2) Urine WBC 0-2 (0-5) Ur Squamous Epith Cells None (None-Few) Urine Bacteria None (None) Imaging Data CT Chest/Ab/Pelvis: Attestation: I have reviewed the pertinent imaging results. Radiologist's impression: ungs and Airways: Upper lobe predominant paraseptal emphysema. Bibasilar subsegmental atelectasis. No endoluminal lesion. Heart and Mediastinum: The visualized portions of the thyroid are normal. No axillary or supraclavicular lymphadenopathy. No mediastinal, hilar or retrocrural lymphadenopathy. Normal heart size. Normal caliber aorta. Pleura: The pleural spaces are normal. ABDOMEN: Liver: Normal enhancement. No focal suspicious hepatic lesions. Gallbladder and biliary: Cholecystectomy. Prominence of the bile ducts which can be seen in a normal post cholecystectomy setting. Spleen: Normal size and enhancement. Pancreas: Normal enhancement without peripancreatic inflammatory changes or ductal dilatation. Adrenal glands: Normal adrenal glands. Kidneys and ureters: Normal enhancement. No radio-opaque calculi. No hydroureteronephrosis. GI tract: The stomach is relatively decompressed. Normal caliber small and large bowel loops. Normal appendix. Likely old area of epiploic appendagitis abutting the sigmoid. Axial images 80-90. Vascular structures: Normal caliber abdominal aorta. Lymph nodes: No lymphadenopathy in the abdomen or pelvis by size criteria. Peritoneum: No free air, free fluid, or focal drainable fluid collection. PELVIS: Genitourinary system: Normal urinary bladder. Hysterectomy. Age-appropriate ovaries. SKELETAL STRUCTURES AND SOFT TISSUES: Tiny sclerotic foci in the pelvis statistically represent bone islands. No discrete acute displaced osseous process. IMPRESSION: 1. No acute traumatic process within the chest, abdomen, or pelvis. 2. No discrete acute displaced osseous process. Left shoulder x-ray: Attestation: I have reviewed the pertinent imaging results. My impression: I do not note any acute fractures Radiologist's impression: No fracture, dislocation, or destructive lesion of bone is seen. No arthritic changes or soft tissue abnormalities are identified. IMPRESSION: Negative left shoulder radiographs. Right upper extremity x-ray: Attestation: I have reviewed the pertinent imaging results. My impression: No evidence of fracture of right humerus, right forearm wrist or hand. Radiologist's impression: Bones: Alignment is normal. No fractures or bone lesions. Joint spaces: Unremarkable. Soft tissues: Unremarkable. Impression: No sign of acute injury. No fracture, dislocation, or destructive lesion of bone is seen. No arthritic changes or soft tissue abnormalities are identified. IMPRESSION: Negative right hand and wrist radiographs. No fracture, dislocation, or destructive lesion of bone is seen. No arthritic changes or soft tissue abnormalities are identified. IMPRESSION: Negative right hand and wrist radiographs. Discharge Plan Discharge Patient Disposition: Home w/ Parent or Adult Condition: Improved Additional Instructions: Rest, ice to areas of discomfort. You may need an MRI of your left shoulder in the future if your symptoms do not improve. Ibuprofen or Tylenol as needed for discomfort. Flexeril as a muscle relaxer and may be used as needed. Please do not take with any other medication that could be sedating. Return to the emergency room for worsening symptoms, onset of new symptoms. Prescriptions: No Action duloxetine [Cymbalta] 60 mg capsule,delayed release(DR/EC) 60 mg PO HS topiramate 25 mg tablet 75 mg PO HS valacyclovir 500 mg tablet 500 mg PO HS Patient Comments: TAKE ONE TABLET BY MOUTH TWICE A DAY FOR 10 DAYS THEN RETURN TO ONE TABLET DAILY Vashe Wound Therapy 0.033 % irrigation solution 1 irrig irrigation DAILY PRN (Reason: wound care) Qty: 6000 0RF clindamycin HCl 300 mg capsule 300 mg PO TID Qty: 15 0RF valacyclovir 500 mg tablet 500 mg PO BID Qty: 100 2RF Rx Instructions: take 1 tablet by mouth twice a day for 10 days then return to 1 tablet by mouth daily trazodone 100 mg tablet 200 mg PO HS Qty: 60 0RF fluoxetine 20 mg capsule 60 mg PO HS Qty: 90 2RF Follow Up/Referrals: Abdiel Zayas MD [Staff Physician] - Stand Alone Forms: [employer] Info Instructions
--- NOTE | 2023-02-24 20:30 | CRLHL7_ITS ---
For Patients: As a result of the Cures Act, medical imaging exams and procedure reports are released immediately into your electronic medical record. You may view this report before your referring provider. If you have questions, please contact your health care provider. INDICATION: FALL FROM HORSE LEFT SHOULDER No fracture, dislocation, or destructive lesion of bone is seen. No arthritic changes or soft tissue abnormalities are identified. IMPRESSION: Negative left shoulder radiographs. ALLEGRA DOE MD [facility] Dictated by: Fletcher Doe MD @ 02/24/2023 21:40:14 (Electronically Signed)
--- NOTE | 2023-02-24 20:31 | CRLHL7_ITS ---
For Patients: As a result of the Century Cures Act, medical imaging exams and procedure reports are released immediately into your electronic medical record. You may view this report before your referring provider. If you have questions, please contact your health care provider. INDICATION: FALL FROM HORSE 5.5 FEET TECHNIQUE: CT chest, abdomen and pelvis acquired 82 milliliters Isovue 370 contrast. COMPARISON: None. FINDINGS: CHEST: Lungs and Airways: Upper lobe predominant paraseptal emphysema. Bibasilar subsegmental atelectasis. No endoluminal lesion. Heart and Mediastinum: The visualized portions of the thyroid are normal. No axillary or supraclavicular lymphadenopathy. No mediastinal, hilar or retrocrural lymphadenopathy. Normal heart size. Normal caliber aorta. Pleura: The pleural spaces are normal. ABDOMEN: Liver: Normal enhancement. No focal suspicious hepatic lesions. Gallbladder and biliary: Cholecystectomy. Prominence of the bile ducts which can be seen in a normal post cholecystectomy setting. Spleen: Normal size and enhancement. Pancreas: Normal enhancement without peripancreatic inflammatory changes or ductal dilatation. Adrenal glands: Normal adrenal glands. Kidneys and ureters: Normal enhancement. No radio-opaque calculi. No hydroureteronephrosis. GI tract: The stomach is relatively decompressed. Normal caliber small and large bowel loops. Normal appendix. Likely old area of epiploic appendagitis abutting the sigmoid. Axial images 80-90. Vascular structures: Normal caliber abdominal aorta. Lymph nodes: No lymphadenopathy in the abdomen or pelvis by size criteria. Peritoneum: No free air, free fluid, or focal drainable fluid collection. PELVIS: Genitourinary system: Normal urinary bladder. Hysterectomy. Age-appropriate ovaries. SKELETAL STRUCTURES AND SOFT TISSUES: Tiny sclerotic foci in the pelvis statistically represent bone islands. No discrete acute displaced osseous process. IMPRESSION: 1. No acute traumatic process within the chest, abdomen, or pelvis. 2. No discrete acute displaced osseous process. Please note that all CT scans at this facility use dose modulation, iterative reconstruction, and/or weight-based dosing when appropriate to reduce radiation dose to as low as reasonably achievable. Dictated by Abdiel Freeman MD @ 02/24/2023 9:40:45 PM (Electronically Signed)
[2023-02-24] MEDS: HYDROmorphone 0.5 mg/0.5 ml inj IVP ×2 (20:38→21:22)
[2023-02-24 20:45] LABS: Basophils Absolute Auto 0.03 K/uL (0.00-0.30); Basophils Percent Auto 0.3 % (0.0-3.0); Hematocrit 36.8 % (33.0-51.0); Hemoglobin* 12.1 gm/dL (12.0-16.0); Immature Granulocytes Abs Auto 0.03 K/uL (0.00-0.30); Immature Granulocytes Pct Auto 0.3 %; Lymphocytes Absolute Auto 2.49 K/uL (0.90-2.90); Lymphocytes Percent Auto 24.4 % (20-44); Mean Corpuscular HGB Conc 33 gm/dL (32-36); Mean Corpuscular Hemoglobin 30 pg (26-34); Mean Corpuscular Volume 92 fL (80-100); Neutrophils Absolute Auto 6.74 K/uL (1.7-7.0); Platelet Count* 311 K/uL (140-440); RDW Coefficient of Variation % 12.7 % (11.5-15.5); Red Blood Count 4.01 m/uL (4.00-5.20); Slide Review Reflex No
[2023-02-24 20:58] LABS: Albumin* 4.4 g/dL (3.3-5.0); Chloride* 107 mmol/L (96-114); Sodium* 138 mmol/L (135-149)
[2023-02-24 20:59] LABS: Potassium* 3.6 mmol/L (3.6-5.1)
[2023-02-24 21:01] LABS: Alkaline Phosphatase* 64 U/L (40-150); Aspartate Amino Transferase* 24 U/L (12-35); Bilirubin Total* 0.4 mg/dL (0.1-1.5); Blood Urea Nitrogen* 14 mg/dL (5-24); Carbon Dioxide* 21 mmol/L (20-32); Est. Creatinine Clearance* 70.71; Estimated Glomerular Filt Rate 73 ml/min; Total Protein* 7.3 g/dL (6.0-8.3)
[2023-02-24 21:02] LABS: Alanine Aminotransferase* 18 U/L (4-35); Glucose* 77 mg/dL (60-115)
[2023-02-24 21:23] LABS: Appearance Urine Clear (Clear); Bilirubin Urine Negative (Negative); Blood Urine Negative (Negative); Color Urine Yellow (Yellow); Glucose Urine Negative (Negative); Ketones Urine Negative (Negative); Leukocyte Esterase Urine Negative (Negative); Nitrite Urine Negative (Negative); Protein Urine Negative (Negative); Specific Gravity Urine <= 1.005 (1.000-1.030); Urobilinogen Urine 0.2 (0.2-1.0); pH Urine 6.5 (5.0-8.5)
[2023-02-24 21:43] LABS: RBC Urine 0-2 (0-2); WBC Urine 0-2 (0-5)
[2023-03-02 18:09] LABS: Calcium* 9.4 mg/dL (8.4-10.6)
== END 2023-02-24 22:30 | disposition home or self-care (01) ==
PROVIDERS: Emergency Provider Family Medicine
DX: M25.512 Pain in left shoulder (principal); S40.022A Contusion of left upper arm, initial encounter; V80.010A Animal-rider injured by fall from or being thrown from horse in noncollision accident, initial encounter
CPT/HCPCS: 36415; 71260; 73030; 73060; 73110; 73120; 74177; 80053; 81001; 85025; 94761; 96361; 96374; 96375; 99284; 99285; 99291; J1170; J2270; J2405; J7030; Q9967